=== PATIENT | female | born 1975 | race Caucasian/White ===

== ENCOUNTER → 2018-03-12 13:58 | Outpatient (CLI) | payer BC, SELFPAY ==
[2018-03-13 14:42] LABS: HPV Reflexed? NOT INDICATED
== END ==
PROVIDERS: Referring Provider Obstetrics & Gynecology; Visit Provider Obstetrics & Gynecology
DX: Z12.4 Encounter for screening for malignant neoplasm of cervix (principal)
CPT/HCPCS: 88175; G0145

== ENCOUNTER → 2018-07-25 12:45 | Outpatient (CLI) | payer BC, SELFPAY ==
--- NOTE | 2018-07-25 12:48 | BI_ITS ---
MAMMOGRAPHY - BILATERAL SCREENING REASON FOR EXAM: Female, 43 years old. Routine annual screening examination. PERTINENT HISTORY: Non-contributory. TECHNIQUE: Digital bilateral breast matthew (3D mammographic acquisition) in the CC and MLO projections. 2-D mediolateral oblique (MLO) and craniocaudad (CC) views of both breasts were obtained. CAD: Full Field Digital Mammography with Computer Added Detection was performed. COMPARISON: Comparison is made with prior examination dated May 06, 2017. FINDINGS: Breast Composition: The breasts are heterogeneously dense, which may obscure small masses. There are no dominant masses or suspicious calcifications. No other significant abnormalities are identified. There has been no significant change since the prior study. BI/SCREENING MAMM (CAD), BILAT IMPRESSION: Stable bilateral screening mammogram. Yearly follow-up mammogram recommended. (A) ASSESSMENT CATEGORY: BIRADS Category 1: Negative. A letter regarding these results will be sent to the patient by the facility within 30 days. Approximately 10% of breast cancers are not detected by mammography. A normal mammogram should not delay biopsy of a clinically suspicious abnormality. [id number] Electronically Signed: John Paul Woodruff MD at 14:25 EST , Service support ,
== END ==
PROVIDERS: Family Provider Family Medicine; PCP Family Medicine; Referring Provider Obstetrics & Gynecology; Visit Provider Obstetrics & Gynecology
DX: Z12.31 Encounter for screening mammogram for malignant neoplasm of breast (principal)
CPT/HCPCS: 77063; 77067

== ENCOUNTER → 2018-07-27 12:01 | Outpatient (CLI) | payer BC, SELFPAY ==
[2018-07-27 15:32] LABS: Absolute Neutrophil Count 5.7 X10^3/uL (2.0-7.7); Basophil# 0.06 X10^3/uL; Basophil% 0.6 % (0-1); Eosinophil# 0.34 X10^3/uL; Eosinophils% 3.6 % (0-5); Hematocrit 43.5 % (37-47); Hemoglobin 14.3 g/dl (12.0-15.0); Lymphocyte % 27.5 % (19-41); Mean Corp Hgb Conc 32.9 g/gl (32-36); Mean Corpuscular Hgb 30.4 pg (27.0-32.0); Mean Corpuscular Volume 92.6 fL (81-99); Mean Platelet Vol. 10.5 fl (6.2-12.0); Monocyte% 7.4 % (0-10); Neutrophil # 5.72 X10^3/uL (2.7-7.7); Neutrophil % 60.5 % (47-70); Platelet Count 211 K/mm3 (150-450); RBC Distribution Width CV 12.7 % (11.6-14.6); RBC Distribution Width SD 41.9 fl (35.1-43.9); White Blood Count 9.5 K/mm3 (4.4-11.0)
[2018-07-27 15:35] LABS: POSITIVE COUNT NO; POSITIVE DIFFERENTIAL NO; POSITIVE MORPHOLOGY NO
[2018-07-27 16:10] LABS: Thyroid Stim Hormone (TSH) 0.98 uIU/mL (0.358-3.74)
== END ==
PROVIDERS: Family Provider Family Medicine; PCP Family Medicine; Referring Provider Family Medicine; Visit Provider Family Medicine
DX: R20.0 Anesthesia of skin (principal); R20.2 Paresthesia of skin
CPT/HCPCS: 36415; 84443; 85025

== ENCOUNTER → 2018-10-16 06:40 | Outpatient (CLI) | payer BC, SELFPAY ==
--- NOTE | 2018-10-16 12:10 | NEURO ---
NCS and/or EMG Patient Report Ordering Doctor: Silvina Vicente DATE OF SERVICE: 10/16/18 This is an EMG and nerve conduction study of the right upper extremity performed on this 43-year-old female with paresthesias in the first 3 digits of the right hand for 8 months. She does wear a wrist splint at night which helps. Right upper extremity sensory motor nerve conduction studies performed demonstrating prolongation of the median motor and sensory distal latencies with reduction of the median motor amplitudes but preserved conduction velocity. The median motor F wave is also prolonged. The ulnar motor and sensory, and radial sensory responses are normal in the ulnar f wave response is normal. Right upper extremity needle electromyography is performed. The abductor pollicis brevis muscle did demonstrate large motor units with early recruitment. All other muscles tested demonstrated normal insertional activity with absence of pathologic spontaneous activity. Motor unit potential recruitment pattern and amplitude was otherwise normal. Other muscles tested included the first dorsal interosseous, abductor pollicis brevis, brachial radialis, biceps, triceps and deltoid muscles. Impression: Abnormal electrophysiologic study of the right upper extremity consistent with mild carpal tunnel syndrome at the wrist.
== END ==
PROVIDERS: Family Provider Family Medicine; PCP Family Medicine; Referring Provider Family Medicine; Visit Provider Family Medicine
DX: R20.0 Anesthesia of skin (principal); R20.2 Paresthesia of skin
CPT/HCPCS: 95886; 95910

== ENCOUNTER 2019-01-16 05:30 | Day surgery (SDC) | payer BC, SELFPAY ==
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
[2019-01-16] VITALS (8 sets, daily range): BP systolic 96–118; BP diastolic 59–75; PULSE 62–71; RESP 14–16; TEMP 36.2–37; O2SAT 95–100; BMI 28.4
[2019-01-16 06:05] LABS: Internal QC Validated? YES +Cl - CLEAR BKGD; Pregnancy, Urine Negative Negative
[2019-01-16] MEDS: Cefazolin 2 GM in 0.9% Normal Saline 100 ML IV (07:11)
[2019-01-16] MEDS: Bupivacaine Mpf 0.5% 30 ML VIAL (07:30)
--- NOTE | 2019-01-16 07:37 | OP.PCM_ITS ---
Report of Operation Date of Procedure: 01/16/19 Pre-Operative Diagnosis: Right carpal tunnel syndrome Post-Operative Diagnosis: Right carpal tunnel syndrome Surgery/Procedure Performed:: Right carpal tunnel release Description of Surgical Findings:: Complete release transverse carpal ligament director of vocational guidance: None Type of Anesthesia:: Block,[place] Anesthesiologist: Jarret Toro Special Medications: 2 g Ancef Estimated Blood Loss (mL): 1 mL Fluids Replaced: 500 mL crystalloid Description of Procedure: Brief history operative indications: 43-year-old female who failed conservative measures for right carpal tunnel syndrome. Patient wished to proceed with right open carpal tunnel release. After discussing risks and benefits including but not limited to blood loss, DVTs, PEs, neurovascular damage, infection, hematoma and general risk of anesthesia, the patient demonstrated understanding wish to proceed with right open carpal tunnel release Procedure: On the date of the procedure, the patient's right upper extremity was marked in the preoperative area. Patient was taken back to the operating room, where the tourniquet was placed on the right upper extremity. Patient was given light sedation. All bony prominences are identified well-padded. Anesthesia assumed control C-spine and airway and remained in control throughout the remainder the procedure. [place] block was administered by anesthesia. The right upper extremity was prepped in sterile fashion. Surgeon then scrub. Upon reentering the room, the right upper extremity was prepped in a standard orthopedic fashion. A timeout was called and everyone agreed upon the side, the site, the procedure to be performed, patient identity and antibiotics given. The incision was marked out. Incision was taken at the skin subtenons tissue fat down to fascia. Fascia was then lightly tethered until the median nerve was visible. A [place] was placed proximally and distally, and then scissors were placed proximally and distally to release the transverse carpal ligament. During the release the others were never completely closed. The [place] was then placed proximally and distally once more to verify the transverse carpal ligament had been adequately released. The wound was then copiously irrigated out with normal saline. Wound was then closed using 3-0 nylon suture. 10 cc of 50-50 mixture of 1% lidocaine and 0.5% Sensorcaine without epinephrine injection was given. Xeroform dressing was placed, sterile dressing was placed, compressive dressing was placed. Tourniquet was let down. Volar splint was placed. Patient was awakened by anesthesia and transferred to the PACU for recovery. Postoperative plan: The patient will follow up in 2 weeks for removal splint removal sutures. At that time if they are doing well they will follow-up as needed. - Complications No intraoperative complications - Admit VTE Documentation VTE Present on Admission: No VTE Mechan Device Prophylaxis: SCD's VTE Pharm Prophylaxis ordered?: No Reason prophylaxis not ordered:: Treatment Not Indicated
[2019-01-16] MEDS: Ketorolac 30 MG/ML Syringe IV (08:25)
== END 2019-01-16 08:50 | disposition home or self-care (01) ==
LOC: SDC 05:32 → AC 05:33
PROVIDERS: Anesthesiology; Family Provider Family Medicine; PCP Family Medicine; Referring Provider Specialist; Visit Provider Specialist
PROC: (CPT 64721; principal; 2019-01-16 07:00)
DX: G56.01 Carpal tunnel syndrome, right upper limb (principal)
CPT/HCPCS: 01810; 64721; 81025; J7120

== ENCOUNTER → 2019-08-14 12:08 | Outpatient (CLI) | payer BC, SELFPAY ==
[2019-01-16 06:13] VITALS: BMI 28.4
--- NOTE | 2019-08-14 12:10 | BI_ITS ---
MAMMOGRAPHY - BILATERAL SCREENING REASON FOR EXAM: Female, 44 years old. Routine annual screening examination. PERTINENT HISTORY: Non-contributory. TECHNIQUE: Digital bilateral breast teresa (3D mammographic acquisition) in the CC and MLO projections. 2-D mediolateral oblique (MLO) and craniocaudad (CC) views of both breasts were obtained. CAD: Full Field Digital Mammography with Computer Added Detection was performed. COMPARISON: Comparison is made with prior examination if every and May 06, 2017. FINDINGS: Breast Composition: The breasts are heterogeneously dense, which may obscure small masses. There are no dominant masses or suspicious calcifications. No other significant abnormalities are identified. There has been no significant change since the prior study. BI/SCREEN MAMM (CAD) W/TERESA BILAT IMPRESSION: Stable bilateral screening mammogram. Yearly follow-up mammogram recommended. (A) ASSESSMENT CATEGORY: BIRADS Category 1: Negative. A letter regarding these results will be sent to the patient by the facility within 30 days. Approximately 10% of breast cancers are not detected by mammography. A normal mammogram should not delay biopsy of a clinically suspicious abnormality. [id number] Electronically Signed: John Paul Woodruff, at 13:16 EDT , Service support ,
== END ==
PROVIDERS: PCP Family Medicine; Referring Provider Obstetrics & Gynecology; Visit Provider Obstetrics & Gynecology
DX: Z12.31 Encounter for screening mammogram for malignant neoplasm of breast (principal)
CPT/HCPCS: 77063; 77067

== ENCOUNTER → 2020-04-02 14:10 | Outpatient (CLI) | payer BC, SELFPAY ==
[2019-01-16 06:13] VITALS: BMI 28.4
[2020-04-08 13:59] LABS: HPV Reflexed? NOT INDICATED
== END ==
PROVIDERS: PCP Family Medicine; Visit Provider Obstetrics & Gynecology
DX: Z12.4 Encounter for screening for malignant neoplasm of cervix (principal)
CPT/HCPCS: 88175; G0145

== ENCOUNTER → 2021-10-26 | Outpatient (CLI) | payer BC, SELFPAY ==
[2021-10-26 13:53] LABS: Estradiol 182.5 pg/mL; Follicle Stimulating Hormone 3.8 mIU/mL; Luteinizing Hormone 6.3 mIU/mL; Prolactin 3.9 ng/mL; Thyroid Stim Hormone (TSH) 1.53 uIU/mL (0.358-3.74)
[2021-10-30 11:34] LABS: HPV APTIMA, High Risk Negative (Negative)
== END | disposition home or self-care (01) ==
LOC: WOBLAB 11:18
PROVIDERS: PCP Family Medicine; Visit Provider Student in an Organized Health Care Education/Training Program
DX: Z12.4 Encounter for screening for malignant neoplasm of cervix (principal); N92.0 Excessive and frequent menstruation with regular cycle; N93.9 Abnormal uterine and vaginal bleeding, unspecified
CPT/HCPCS: 36415; 82670; 83001; 83002; 84146; 84439; 84443; 84481; 87624; 88175; G0145

== ENCOUNTER → 2021-11-02 | Outpatient (CLI) | payer BC, SELFPAY ==
--- NOTE | 2021-11-02 16:27 | BI_ITS ---
MAMMOGRAPHY - BILATERAL SCREENING REASON FOR EXAM: Female, 46 years old. Routine annual screening examination. PERTINENT HISTORY: Non-contributory. TECHNIQUE: Digital bilateral breast teresa (3D mammographic acquisition) in the CC and MLO projections. 2-D mediolateral oblique (MLO) and craniocaudad (CC) views of both breasts were obtained. CAD: Full Field Digital Mammography with Computer Added Detection was performed. COMPARISON: Comparison is made with prior study dated 08/14/2019 and 07/25/2018. FINDINGS: Breast Composition: The breasts are heterogeneously dense, which may obscure small masses. There are no dominant masses or suspicious calcifications. No other significant abnormalities are identified. There has been no significant change since the prior study. BI/SCRN MAMM (CAD)W/TERESA BILAT IMPRESSION: Stable bilateral screening mammogram. Yearly follow-up mammogram recommended. (A) ASSESSMENT CATEGORY: BIRADS Category 1: Negative. A letter regarding these results will be sent to the patient by the facility within 30 days. Approximately 10% of breast cancers are not detected by mammography. A normal mammogram should not delay biopsy of a clinically suspicious abnormality. [id number] Electronically Signed: John Paul Woodruff MD at 8:48 EDT ,
== END | disposition home or self-care (01) ==
LOC: OPBI 11-03 06:57
PROVIDERS: PCP Family Medicine; Referring Provider Student in an Organized Health Care Education/Training Program; Visit Provider Student in an Organized Health Care Education/Training Program
DX: Z12.31 Encounter for screening mammogram for malignant neoplasm of breast (principal)
CPT/HCPCS: 77063; 77067

== ENCOUNTER → 2022-11-22 | Outpatient (CLI) | payer BC, SELFPAY ==
--- NOTE | 2022-11-22 12:15 | BI_ITS ---
MAMMOGRAPHY - BILATERAL SCREENING REASON FOR EXAM: Female, 47 years old. Routine annual screening examination. PERTINENT HISTORY: Non-contributory. TECHNIQUE: Digital bilateral breast teresa (3D mammographic acquisition) in the CC and MLO projections. 2-D mediolateral oblique (MLO) and craniocaudad (CC) views of both breasts were obtained. CAD: Full Field Digital Mammography with Computer Added Detection was performed. COMPARISON: Mammogram from 11/02/2021, 08/14/2019. FINDINGS: Breast Composition: The breasts are heterogeneously dense, which may obscure small masses. There is an asymmetry in the right retroareolar slightly inferior breast, anterior depth, approximately 0.5 cm posterior to the nipple and seen only on 3-D MLO views which appears slightly more conspicuous than prior studies. Further assessment with spot compression views and ultrasound if needed is recommended. No other significant abnormalities are identified. BI/SCRN MAMM (CAD)W/TERESA BILAT IMPRESSION: Further imaging evaluation recommended, as described above. (E) Recall Side: Right Breast ASSESSMENT CATEGORY: BIRADS Category 0: Incomplete. Need additional imaging evaluation. A letter regarding these results will be sent to the patient by the facility within 30 days. Approximately 10% of breast cancers are not detected by mammography. A normal mammogram should not delay biopsy of a clinically suspicious abnormality. Electronically Signed: Nicolás Delatorre DO at 16:53 EDT ,
== END | disposition home or self-care (01) ==
LOC: OPBI 12:13
PROVIDERS: PCP Family Medicine; Referring Provider Student in an Organized Health Care Education/Training Program; Visit Provider Student in an Organized Health Care Education/Training Program
DX: Z12.31 Encounter for screening mammogram for malignant neoplasm of breast (principal)
CPT/HCPCS: 77063; 77067

== ENCOUNTER → 2022-11-30 | Outpatient (CLI) | payer BC, SELFPAY ==
--- NOTE | 2022-11-30 08:54 | US_ITS ---
STUDY: ULTRASOUND BREAST - RIGHT REASON FOR EXAM: Female, 47 years old. Abnormal screening mammogram. TECHNIQUE: Axial and longitudinal images of the RIGHT breast were performed with a high resolution ultrasound transducer. # OF IMAGES: 20 COMPARISON: Comparison is made with prior mammogram dated November 22, 2022. FINDINGS: RIGHT Breast: The retroareolar region of the right breast was examined with ultrasound. There is evidence of dilated subareolar ducts. US/Breast Limited Unilateral IMPRESSION: Dilated retroareolar ducts of the right breast. ASSESSMENT CATEGORY: BIRADS Category 2: Benign. A letter regarding these results will be sent to the patient by the facility within 30 days. Electronically Signed: John Paul Woodruff MD at 11:05 EDT ,
--- NOTE | 2022-11-30 08:54 | BI_ITS ---
MAMMOGRAPHY - UNILATERAL DIAGNOSTIC: RIGHT BREAST REASON FOR EXAM: Female, 47 years old. Abnormal screening mammogram. PERTINENT HISTORY: Asymmetrical density in the retroareolar region of the right breast. TECHNIQUE: Compression spot views of the right breast were obtained. . CAD: Full Field Digital Mammography with Computer Added Detection was performed. COMPARISON: Comparison is made with prior study November 22, 2022. FINDINGS: Breast Composition: The breasts are heterogeneously dense, which may obscure small masses. There are no dominant masses or suspicious calcifications. No other significant abnormalities are identified. BI/DIAG MAMM W/CAD, UNILAT IMPRESSION: Negative unilateral diagnostic mammogram. Correlation with targeted ultrasound assessment is recommended. ASSESSMENT CATEGORY: BIRADS Category 0: Incomplete. Need additional imaging evaluation. A letter regarding these results will be sent to the patient by the facility within 30 days. Approximately 10% of breast cancers are not detected by mammography. A normal mammogram should not delay biopsy of a clinically suspicious abnormality. Electronically Signed: John Paul Woodruff MD at 11:42 EDT ,
== END | disposition home or self-care (01) ==
PROVIDERS: PCP Family Medicine; Referring Provider Student in an Organized Health Care Education/Training Program; Visit Provider Student in an Organized Health Care Education/Training Program
DX: R92.8 Other abnormal and inconclusive findings on diagnostic imaging of breast (principal)
CPT/HCPCS: 76642; 77065

== ENCOUNTER → 2022-12-14 | Outpatient (CLI) | payer BC, SELFPAY ==
[2022-12-14 10:16] LABS: Erythrocyte Sedimentation Rate 14 mm/hr (0-30)
[2022-12-14 10:27] LABS: Vitamin B12 213 pg/mL (211-911); Vitamin D,25 Hydroxy 18.3 ng/mL
[2022-12-14 10:48] LABS: AST(SGOT) 48 U/L (15-37); Alanine Aminotransfer ALT/SGPT 96 U/L (13-56); Albumin, Serum 3.4 g/dL (3.2-5.0); Alkaline Phosphatase 72 U/L (45-117); Anion Gap 5 (5-15); BUN 14 mg/dL (7-18); BUN/Creat Ratio 19.9 RATIO (10-20); CRP < 2.90 mg/L (0.0-3.0); Calcium,Total 8.8 mg/dL (8.5-10.1); Chloride 111 mmol/L (98-107); Cholesterol 207 mg/dL (200); EST Glomerular Filtration Rate 95 mL/min (>60); Est Glom Filt Rate - Afr Amer 115 mL/min (>60); Globulin 3.5 g/dL (2.2-4.2); Glucose 79 mg/dL (74-106); High Density Lipoprotein 44 mg/dL; Potassium 4.2 mmol/L (3.5-5.1); Protein, Total 6.9 g/dL (6.4-8.2); Sodium Level 140 mmol/L (136-145); Thyroid Stim Hormone (TSH) 1.44 uIU/mL (0.358-3.74); Triglycerides 204 mg/dL; Very Low Density Lipoprotein 41 mg/dL (5-40)
[2022-12-14 10:57] LABS: Absolute Lymphocyte Count 2.78 X10^3/uL (0.83-4.51); Absolute Neutrophil Count 4.2 X10^3/uL (2.0-7.7); Basophil# 0.05 X10^3/uL; Basophil% 0.6 % (0-1); Eosinophil# 0.37 X10^3/uL; Eosinophils% 4.6 % (0-5); Hematocrit 44.1 % (37-47); Hemoglobin 14.5 g/dL (12.0-15.0); Lymphocyte # 2.78 X10^3/ul (0.83-4.51); Lymphocyte % 34.3 % (19-41); Mean Corp Hgb Conc 32.9 g/dL (32-36); Mean Corpuscular Hgb 30.9 pg (27.0-32.0); Mean Platelet Vol. 10.5 fl (6.2-12.0); Monocyte# 0.62 X10^3/uL; Monocyte% 7.7 % (0-10); NRBC Flagged by Analyzer 0 % (0-5); Neutrophil # 4.22 X10^3/uL (2.7-7.7); Neutrophil % 52.1 % (47-70); Platelet Count 213 K/mm3 (150-450); RBC Distribution Width CV 12.7 % (11.6-14.6); RBC Distribution Width SD 43.4 fl (35.1-43.9); Red Blood Count 4.69 M/mm3 (4.2-5.4); White Blood Count 8.1 K/mm3 (4.4-11.0)
[2022-12-15 12:09] LABS: ANTINUCLEAR ANTIBODIES DIRECT Negative (Negative)
== END | disposition home or self-care (01) ==
PROVIDERS: PCP Family Medicine; Referring Provider Family Medicine; Visit Provider Family Medicine
DX: M79.10 Myalgia, unspecified site (principal); Z13.220 Encounter for screening for lipoid disorders; R53.83 Other fatigue
CPT/HCPCS: 36415; 80053; 80061; 82306; 82607; 84443; 85025; 85652; 86038; 86140; 86431

== ENCOUNTER 2023-04-03 07:05 | Day surgery (SDC) | payer BC, SELFPAY ==
[2023-04-03] VITALS (7 sets, daily range): BP systolic 102–154; BP diastolic 63–139; PULSE 69–85; RESP 16; TEMP 36.7–37.1; O2SAT 94–99; BMI 28.7
--- NOTE | 2023-04-03 07:15 | HP.PCM_ITS ---
[facility] - General General Date of Service: 04/03/23 HPI Narrative MOHINI REYNOLDS, is a 47 F who presents for screening colonoscopy. Patient never had previous colonoscopy. Patient paternal grandfather had colon cancer at age 56. Patient denies any chronic abdominal pain/nausea/vomiti ng/reflux. Patient's bowel movements every 1-2 days denies any blood. PFSH Medical History Arthritis Family hx of colon cancer History of deviated nasal septum Rheumatoid arthritis Smoker Home Medications cholecalciferol (vitamin D3) 50 mcg (2,000 unit) capsule 50 mcg PO DAILY 02/13/23 [History Last Taken Unknown] magnesium citrate,mag oxide 250 mg capsule 250 mg PO DAILY 02/13/23 [History Last Taken Unknown] mecobalamin (vitamin B12) 1,000 mcg chewable tablet 1,000 mcg PO DAILY 02/13/23 [History Last Taken Unknown] turmeric root extract 500 mg capsule 500 mg PO DAILY 02/13/23 [History Last Taken Unknown] Allergy/AdvReac Type Severity Reaction Status Date / Time No Known Allergies Allergy Verified 03/27/23 09:32 Family History (Updated 02/13/23 @ 15:34 by Anny Meeks) Grandfather Colon cancer, Onset Age: 56 Colon cancer started at young age per patient Heart disease Grandfather Throat cancer Lung cancer Bone cancer Grandmother Leukemia Skin cancer Surgical History (Updated 03/27/23 @ 09:38 by Kusum Rashid) History of carpal tunnel surgery of right wrist Social History (Updated 02/13/23 @ 15:35 by Anny Meeks) household members: spouse and children current occupational status: employed Smoking Status: Current every day smoker tobacco type: cigarettes Past Medical/Surgical History Planned Operation Planned Operative Procedure/s: COLONOSCOPY-OA S.O.S: No Previous Hospitalizations/Surgeries HX Hospitalizations: No HX of Surgeries: DEVIATED SEPTUM Any Problems With Anesthesia: No You/Your Family Experience Fever (Hyperthermia) With Anes: No Cholinesterase deficiency: No Cardiovascular Hx Chest Pain within Last 2 months: No Hx of Irregular Heartbeat and/or Afib: No Hx Heart Attack: No Hx Congestive Heart Failure: No Hx Rheumatic Fever: No Hx Hypertension: No Hx Internal Defibrillator: No Hx Pacemaker: No Hx Cardiac Catheterization: No Hx Cardiac Surgery/Stents/Etc.: No Hx Stress Test: No Hx Pain in Legs when Walking/Leg Cramps: No Respiratory Chronic Cough: No HX of Shortness of Breath: No Hoarseness: No Hx Chronic Obstructive Pulmonary Disease (COPD): No Hx Asthma: No Hx Emphysema: No Hx Sleep Apnea: No Hx Respiratory Tract Infection/Cold (presently): No Do You Snore Loudly (louder than talking or can be heard): No Do You Often Feel Tired/ Fatigued/ Sleepy Dring Daytime?: No Has Anyone Observed You Stop Breathing During Sleep?: No Result (for STOP score): Negative Hx Smoking: Yes (1PPD FOR 20 YRS) Smoking Status: Current every day smoker Gastrointestinal Hx Gastroesophageal Reflux: No Hx Gastrointestinal Disorders: No Hx Gastrointestinal Bleed: No Hx Ulcer: No Hx Hiatal Hernia: No Difficulty Chewing/Swallowing: No Special diet followed at home: No Hx Unplanned Weight Loss of 20#: No HX Unplanned Weight Gain of 20#: No Neurological Hx Seizures: No HX Syncope/Blackout Spells/Unconsciousness: No Hx Transient Ischemic Attacks (TIA): No Hx Multiple Sclerosis: No Hx Parkinson's Disease: No Hx Head/Neck Injury: No Hx Headaches: No Hx Back Injury/Pain: No Recent Onset of Speech Difficulty: No Restless Legs: No Does patient have nerve stimulator: No Blood Disorder Hx Leukemia: No Bleeding Tendencies: No Hx Deep Vein Thrombosis: No Hx High Cholesterol: No Blood Transmitted Disease: No Hx Hepatitis: No Hx Cirrhosis: No Hx Anemia: No Hx Blood Disorders: No Reproduction : No Is Patient Lactating: No Hx Hysterectomy: No Hx Tubal Ligation: No Are You Post Menopause: No Genitourinary Hx Renal Disease: No Musculoskeletal Hx Arthritis: No Hx Rheumatoid Arthritis: No Hx Gout: No Recent Onset of an Orthopedic Problem: No Endocrine Hx Diabetes: No Thyroid Disease: No Hx Steroid Therapy: No Psycho/Social Hx Substance Use: No Hx Alcohol Use: Yes (SOCIAL) Hx Anxiety: No Hx Depression: No Mental Illness: No Hx Dementia: No Miscellaneous Hx Cancer: No Recent Exposure to Contagious Disease: No Hx of C-Diff: No Any Loose Teeth: No Allergies No Known Allergies Allergy (Verified 03/27/23 09:32) Discharge Is Pt Admitted From a [facility], or a Senior Care: No After D/C, Where Do you Plan to Go: Return Home Physical Exam Const alert, oriented x3 and no apparent distress HEENT normocephalic and head/scalp atraumatic Resp normal respiratory effort Cardio regular rate GI soft to palpation and non-tender; Negative for non-distended Palpation: Negative for guarding Extremity no clubbing, cyanosis or edema Skin no rashes or lesions noted Neuro CN's II-XII intact bilaterally Psych mental status grossly normal Assessment & Plan Assessment/Plan (1) Encounter for screening for malignant neoplasm of colon: Surgery Risks - Colonoscopy I discussed with the patient the risks of the procedure: Yes Risks Include but are not Limited To: Risks include but are not limited to: Bleeding, perforation requiring further surgery, inability to complete colonoscopy requiring barium enema.
[2023-04-03] MEDS: Lactated Ringers 1,000 ML 15 ML IV (07:48)
[2023-04-03 07:50] LABS: Internal QC Validated? YES +Cl - CLEAR BKGD; Pregnancy, Urine Negative Negative; Record Kit Lot#,Urine Preg HCG0000667200
--- NOTE | 2023-04-03 08:15 | COLBX_PTH ---
PATIENT: MOHINI REYNOLDS LOC: EN U#:[id number] AGE/SX: 47/F ROOM: RE04/03/[address]: Dr. Mayte Mcclellan MD : 1975 BED: DIS: 04/03/2023 SPEC #: [id number] RECD: 04/03/23 11:06 STATUS: JOHN TREVOR #: [id number] AARTI: 04/03/23 08:[address]: Mayte Mcclellan DEPT: SURGICAL PATHOLOGY RECD BY: Elodia Macedo ENTERED: 04/03/23 11:59 SP TYPE: COLON BX OTHR DR: Dr. Jeff Prater MD Tissues: Cecum, NOS Procedures: Surgery Specimen Level IV HEADER OPERATION: Colonoscopy - open access with polyp biopsy PRE-OP DIAGNOSIS: Screening TISSUE SUBMITTED: Cecum biopsy MICROSCOPIC DIAGNOSIS Cecum, biopsy: Fragments of hyperplastic polyp. AM:lauro 04/04/2023 MICROSCOPIC DESCRIPTION Slides are reviewed. GROSS DESCRIPTION Received in fixative is one container labeled with the patient's name and designated cecum biopsy. The specimen consists of multiple irregular fragments of light mao soft tissue that in aggregate measure 1.5 x 0.7 x 0.1 cm. The specimen is totally submitted in one cassette. / SJ:lauro 04/03/2023 TC:5 CPT: 92200
--- NOTE | 2023-04-03 08:41 | OP.COLON_ITS ---
Patient Name: Silvina Moreau Procedure Date: 04/03/2023 8:08 AM Date of : 1975 Age: 47 Procedure: Colonoscopy Indications: Screening for colorectal malignant neoplasm Providers: Mayte Mcclellan MD Medicines: Monitored Anesthesia Care Patient Profile: This is a 47 year old female. Last Colonoscopy: none. The patient's first colonoscopy is today. Complications: No immediate complications. Procedure: Pre-Anesthesia Assessment: - Prior to the procedure, a History and Physical was performed, and patient medications and allergies were reviewed. The patient's tolerance of previous anesthesia was also reviewed. The risks and benefits of the procedure and the sedation options and risks were discussed with the patient. All questions were answered, and informed consent was obtained. Prior Anticoagulants: The patient has taken no anticoagulant or antiplatelet agents. ASA Grade Assessment: Per anesthesia. After reviewing the risks and benefits, the patient was deemed in satisfactory condition to undergo the procedure. After I obtained informed consent, the scope was passed under direct vision. Throughout the procedure, the patient's blood pressure, pulse, and oxygen saturations were monitored continuously. The pediatric colonoscope was introduced through the anus and advanced to the cecum, identified by the appendiceal orifice, ileocecal valve and palpation. The colonoscopy was performed without difficulty. The patient tolerated the procedure well. The quality of the bowel preparation was good. Scope In: 8:15:36 AM Scope Withdrawal Time 0 hours 14 minutes 5 seconds Scope Out: 8:35:39 AM Total Procedure Duration Time 0 hours 20 minutes 3 seconds Findings: Hemorrhoids were found on perianal exam. Non-bleeding internal hemorrhoids were found. The hemorrhoids were Grade I (internal hemorrhoids that do not prolapse). A 7 mm polyp was found in the cecum. The polyp was sessile. The polyp was removed with a cold biopsy forceps. Resection and retrieval were complete. The exam was otherwise without abnormality. Impression: - Hemorrhoids found on perianal exam. - Non-bleeding internal hemorrhoids. - One 7 mm polyp in the cecum, removed with a cold biopsy forceps. Resected and retrieved. - The examination was otherwise normal. Recommendation: - Discharge patient to home. - Resume previous diet. - Continue present medications. - Await pathology results. - Repeat colonoscopy in 5 years for surveillance based on pathology results. Procedure Code(s): --- Professional --- 79999, PT, Colonoscopy, flexible; with biopsy, single or multiple Diagnosis Code(s): --- Professional --- Z12.11, Encounter for screening for malignant neoplasm of colon K64.0, First degree hemorrhoids D12.0, Benign neoplasm of cecum CPT copyright 2021 [employer]. All rights reserved. The codes documented in this report are preliminary and upon fashion journalist review may be revised to meet current compliance requirements. MD Mayte Syed MD 04/03/2023 8:41:04 AM This report has been signed electronically. Number of Addenda: 0 Note Initiated On: 04/03/2023 8:08 AM
--- NOTE | 2023-04-03 08:41 | OP.CCLET_ITS ---
04/03/2023 Angel Prater [address] [place] [address] Re : Colonoscopy procedure for Silvina CraneMoreau Dear Dr. Prater This procedure was performed on Monday, April 03, 2023. My impressions and recommendations are as follows: Impressions : - Hemorrhoids found on perianal exam. - Non-bleeding internal hemorrhoids. - One 7 mm polyp in the cecum, removed with a cold biopsy forceps. Resected and retrieved. - The examination was otherwise normal. Recommendations : - Discharge patient to home. - Resume previous diet. - Continue present medications. - Await pathology results. - Repeat colonoscopy in 5 years for surveillance based on pathology results. My findings are described in the full procedure note, which is enclosed. If I can be of further assistance, please feel free to contact me at Doctor phone number(s): , Work: . Sincerely, MD Mayte Syed MD 04/03/2023 8:41:04 AM This report has been signed electronically.
== END 2023-04-03 09:36 | disposition home or self-care (01) ==
LOC: EN 07:05 → AC 07:12
PROVIDERS: Anesthesiology; PCP Family Medicine; Referring Provider Surgery; Visit Provider Surgery
PROC: 0DJD8ZZ Inspection of Lower Intestinal Tract, Via Natural or Artificial Opening Endoscopic (ICD-10-PCS; CPT 45378; principal; 2023-04-03 08:10)
DX: Z12.11 Encounter for screening for malignant neoplasm of colon (principal); Z80.0 Family history of malignant neoplasm of digestive organs; K64.0 First degree hemorrhoids; F17.210 Nicotine dependence, cigarettes, uncomplicated; D12.0 Benign neoplasm of cecum
CPT/HCPCS: 45380; 81025; 88305; J7120; A4216; J2405

== ENCOUNTER → 2023-04-21 | Outpatient (CLI) | payer BC, SELFPAY ==
[2023-04-21 15:42] LABS: Red Blood Cells-Urine 0 SEEN /hpf (0-5)
[2023-04-21 19:08] LABS: Color, Urine Yellow (Yellow); Glucose, Dipstick Normal (Normal); Ketone-Dipstick 5 mg/dl (Negative); Leukocyte Esterase-Dipstick 25 /ul (Negative); Nitrite-Dipstick Negative (Negative); Occult Blood-Urine 10 /ul (Negative); Protein-Dipstick 15 mg/dl (Negative); Urine Bilirubin Dipstick Negative (Negative); Urine Clarity Sl. Cloudy (Clear); Urine Urobilinogen 1 mg/dl (Normal)
[2023-04-21 19:34] LABS: Calcium Oxalate Crystals Ur 2+ /hpf (<or=2+); Squamous Epithelial Cells - UA 0-5 SEEN /hpf (5-10); White Blood Cells 0-5 SEEN /hpf (0-5)
[2023-04-21 19:35] LABS: Bacteria RARE /hpf (None Seen); Mucous, Urine RARE /hpf (<or=2+)
== END | disposition home or self-care (01) ==
LOC: MTLAB 15:37
PROVIDERS: PCP Family Medicine; Referring Provider Internal Medicine Rheumatology; Visit Provider Internal Medicine Rheumatology
DX: M79.18 Myalgia, other site (principal)
CPT/HCPCS: 81001; 87086

== ENCOUNTER → 2023-12-01 | Outpatient (CLI) | payer BC, SELFPAY ==
--- NOTE | 2023-12-01 08:21 | BI_ITS ---
MAMMOGRAPHY - BILATERAL SCREENING 3-D TOMOSYNTHESIS REASON FOR EXAM: Female, 48 years old. SCREENING PERTINENT HISTORY: No significant family history. TECHNIQUE: 2-D mammograms and 3-D Tomosynthesis of the breast (s) were performed. CAD was performed. COMPARISON: 11/22/2022 FINDINGS: The breast composition is heterogeneously dense that can obscure small breast masses. Scattered benign calcifications are seen. No dense spiculated masses or suspicious microcalcifications are identified. No architectural distortion is identified. There is no skin thickening or retraction. There has been no significant change since the prior study. BI/SCRN MAMM (CAD)W/TERESA BILAT IMPRESSION: No mammographic signs of malignancy. Routine yearly mammograms recommended. ASSESSMENT CATEGORY: BIRADS Category 1: Negative. A letter regarding these results will be sent to the patient by the facility within 30 days. FOLLOW UP RECOMMENDATION: Yearly follow up mammogram recommended. (A) Approximately 10% of breast cancers are not detected by mammography. A normal mammogram should not delay biopsy of a clinically suspicious abnormality. Electronically Signed: Alexandro Mathis MD at 13:28 EDT ,
== END | disposition home or self-care (01) ==
LOC: OPBI 08:20
PROVIDERS: PCP Family Medicine; Referring Provider Obstetrics & Gynecology; Visit Provider Obstetrics & Gynecology
DX: Z12.31 Encounter for screening mammogram for malignant neoplasm of breast (principal)
CPT/HCPCS: 77063; 77067

== ENCOUNTER → 2025-01-30 | Outpatient (CLI) | payer BC, SELFPAY ==
--- NOTE | 2025-01-30 12:24 | BI_ITS ---
EXAM: SCRN MAMM (CAD)W/TERESA BILAT DATE: 01/30/2025 CLINICAL HISTORY: F, Age 49 y/o , SCREENING No family history. TECHNIQUE: SCRN MAMM (CAD)W/TERESA BILAT COMPARISON: Prior exam(s) dated December 01, 2023.. FINDINGS: TISSUE DENSITY: The breasts are heterogeneously dense, which may obscure small masses. Bilateral Breast Mammographic Findings: No significant masses, calcifications or other abnormalities are identified. Stable fat containing bilateral axillary lymph nodes. No suspicious masses, areas of developing architectural distortion, or suspicious calcifications. There has been no significant interval change. BI/SCRN MAMM (CAD)W/TERESA BILAT IMPRESSION: Stable bilateral screening mammogram. OVERALL FINAL ASSESSMENT BI-RADS 2: BENIGN RECOMMENDATION: Routine annual follow-up in 1 Year A letter with findings and recommendations will be mailed to the patient. Reading Location: [id number]
--- OUTSIDE RECORDS SUMMARY | 2025-01-30 18:31 | XMS RPT_ITS | CCD ---
Author Organization [facility] Care Team Providers [employer] Sales Representative Name Role Phone Dr. Angel Prater Primary Care Provider [phone] Anny Meeks Attending Provider Unavailable Dr. Mayte Mcclellan Attending Provider Dr. Mayte Mcclellan Referring Provider [phone] Dr. Mayte Mcclellan Other Provider [phone] Unavailable Primary Care Provider UnavailANN Carver Attending Unavailable JED PRATER Primary Care UnavailJed Larios MD Primary Care Provider Jed Prater Primary Care Unavailable Jed Prater Referring Unavailable Veto Page Attending Unavailable Ann Giang Attending Unavailable Ann Giang Referring Unavailable Jed Prater Primary Care Unavailable Medications Current Medications Medication Drug Class(es) Dates Sig (Normalized) Sig (Original) cholecalciferol 0.05 mg oral capsule (1 source) Vitamin D Start: 02-13-2023 take 50 ug by mouth once daily Cholecalciferol (Vitamin D3) Active 50 MCG PO DAILY February 13, 2023 12:00am Magnesium Citrate,Mag Oxide (1 source) Start: 02-13-2023 take 250 mg by mouth once daily Magnesium Citrate,Mag Oxide Active 250 MG PO DAILY February 13, 2023 12:00am mecobalamin 1 mg chewable tablet (1 source) Start: 02-13-2023 take 1000 ug by mouth once daily Mecobalamin (Vitamin B12) Active 1000 MCG PO DAILY February 13, 2023 12:00am norethindrone 0.35 mg oral tablet (1 source) Start: 01-27-2025 take 1 tablet by mouth once daily Norethindrone, Contraceptive, 0.35 mg tablet Indications: Abnormal uterine bleeding Take 1 tablet by mouth once daily. 90 tablet 3 01/27/2025 Active Start: 01-27-2025 take 1 tablet by srinivasa th once daily Norethindrone, Contraceptive, 0.35 mg tablet Indications: Abnormal uterine bleeding Take 1 tablet by mouth once daily. 90 tablet 3 01/27/2025 Active tranexamic acid 650 mg oral tablet (2 sources) Antifibrinolytic Agent Start: 12-08-2023 End: 01-27-2025 take 2 tablets by mouth every eight hours tranexamic acid (LYSTEDA) 650 mg tablet Take 2 tablets by mouth every 8 hours for 5 days. 30 tablet 11 12/08/2023 01/27/2025 Discontinued Turmeric Root Extract (1 source) Start: 02-13-2023 take 500 mg by mouth once daily Turmeric Root Extract Active 500 MG PO DAILY February 13, 2023 12:00am Problems Active Problems Problem Classification Problem Date Documented Date Episodic/Chronic Endometriosis (5 sources) Uterine adenomyosis; Translations: [Adenomyosis of the uterus] Onset: 11-30-2023 11-30-2023 Chronic Immunizations and screening for infectious disease (1 source) Encounter for screening for human papillomavirus (HPV); Translations: [Encounter for screening for human papillomavirus (HPV)] Onset: 01-27-2025 Episodic Menstrual disorders (3 sources) Menorrhagia; Translations: [Excessive and frequent menstruation with regular cycle] 11-14-2023 Chronic Other female genital disorders (1 source) Abnormal uterine and vaginal bleeding, unspecified; Translations: [Abnormal uterine bleeding] Onset: 01-27-2025 Chronic Other female genital disorders (1 source) Abnormal uterine bleeding; Translations: [Abnormal uterine and vaginal bleeding, unspecified] 01-27-2025 Chronic Other screening for suspected conditions (not mental disorders or infectious disease) (9 sources) Patient encounter status; Translations: [Encounter for screening for malignant neoplasm of colon] Onset: 01-27-2025 02-13-2023 Episodic Past or Other Problems Problem Classification Problem Date Documented Da te Episodic/Chronic Benign neoplasm of uterus (5 sources) Intramural leiomyoma of uterus; Translations: [Intramural leiomyoma of uterus] Onset: 11-30-2023 11-30-2023 Episodic Chronic obstructive pulmonary disease and bronchiectasis (1 source) Bronchitis, not specified as acute or chronic; Translations: [Bronchitis, not specified as acute or chronic] Onset: 04-13-2024 Episodic Unclassified (1 source) Patient encounter status 01-27-2025 Results Test Name Value Interpretation Reference Range Facility CNOVon 01-27-2025 CNOV Office Visit (OBGYWM ) GAILSILVINA Lau ([id number]) 1975 F Date Time Provider Department 01/27/25 7:15 AM ANN GIANG During your visit today, we recorded the following information about you: Blood pressure Weight Height Last Period 112 79.8 kg 1.689 m 01/04/25 Ann Giang, MOUNA.BONE DRIER OPERATOR 01/27/2025 7:43 AM Signed Silvina is a 49 year old who presents for an annual gynecologic exam without complaints. Still get period: Yes LMP: 01/04/2025 Menses: cycles every 28 to 30 days days and 5 days of flow Menstrual flow: heavy Bleeding amount bothersome: Yes, soaking pad/tampon every 3-4 hours Bleeding between periods: No Period symptoms: None Sexually active: Yes Contraception: vasectomy Contraception frequency: always HPV vaccine: No HPV:not sure Last pap smear: 2002 History of abnormal pap: Yes Colposcopy: Yes: early 20s Leep: Yes: early 20s Cone biopsy: No. Bothersome pelvic pain: Yes Last mammogram: 2023 [facility] OB History Gravida2 Para2 Term0 Preterm0 AB0 Living2 SAB0 IAB0 Ectopic0 Multiple0 Live Births0 Stave Bolt Equalizer History LMP: 11/24/2023, Having periods Age at Menarche: Age at First : Age at Menopause: Stave Bolt Equalizer History Comments: Sexual Activity: Yes; Male Contraception: No contraception data on record PAST MEDICAL HISTORY Diagnosis Date Rheumatoid arthritis (HCC) currently getting screened for Rheumatoid PAST SURGICAL HISTORY Procedure Laterality Date REPAIR OF NASAL SEPTUM REVISE MEDIAN N/CARPAL TUNNEL SURG FAMILY HISTORY Problem Relation Age of Onset No Known Problems Mother No Known Problems Father No Known Problems Sister Colon Cancer Maternal Grandmother Cancer Maternal Grandfather Leukemia Paternal Grandmother Colon Cancer Paternal Grandfather SOCIAL HISTORY Social History Tobacco Use Smoking status: Every Day Smokeless tobacco: Never Tobacco comments: .25pkg day Vaping Use Vaping status: Never Used Substance Use Topics Alcohol use: Yes Comment: rarely Drug use: No REVIEW OF SYSTEMS Abdomen: No abdominal pain, nausea, vomiting, diarrhea, or constipation. No bloating, early satiety, indigestion, or increased flatulence. Bladder: No dysuria, gross hematuria, urinary frequency, urinary urgency, or incontinence. Breast: No breast lumps, nipple d/c, overlying skin changes, redness or skin retraction. Allergies and current medication updated:Yes SENSITIVE EXAM: The sensitive examination was discussed with the Patient or Patient's Authorized Executive Recruiter. As applicable, any other physician, advance practice provider, medical student, or other health professional student that will be observing or involved in the sensitive examination for educational or training purposes was discussed with the Patient or Authorized Executive Recruiter. The Patient or Authorized Executive Recruiter has agreed to proceed with the sensitive examination. (Sensitive examination includes inspection and/or palpation of the breasts, pelvis, prostate and anorectal regions). EXAM: BP 112/68 Ht 5' 6.5 (1.69m) Wt 176 lb (79.8kg) LMP 01/04/2025 BMI 27.98 kg/(m2). GENERAL: pleasant, female in no apparent distress HEENT: Normocephalic, atraumatic, mucus membranes moist, and no lesions NECK: Supple, full range of motion, no adenopathy, and thyroid normal DERMATOLOGY: Normal, without lesions, non-icteric, and non-hirsute BREAST: soft, non-tender, symmetric, no dominant mass, normal nipple-areolar complex, no lymphadenopathy, and no nipple discharge CHEST: Normal inspiratory effort ABDOMEN: soft, non-tender, and no masses PELVIC: external genitalia normal, normal Bartholin's glands, urethra, [place]'s glands, no vulvar lesions, no cervical lesions, + nabothian cysts noted good vaginal support, physiologic discharge present, normal appearing perineal body and perianal region BIMANUAL: uterus normal size, shape and consistency, no adnexal masses, and non-tender RECTOVAGINAL: deferred. NEURO: alert and oriented x3,exam grossly non-focal EXTREMITIES: normal ASSESSMENT/PLAN: 1) Health maintenance: Pap done with HPV. Mammogram ordered. Nutrition, exercise and routine health maintenance exams reviewed. Smoking cessation: Smoking cessation encouraged and resources provided. Colon cancer screening: up to date with screening 2022 Lipids/glucose: followed by PCP 2) Contraception: Progestin - only contraceptives and vasectomy. 3) STD screening: Declined STI check. 4) Follow up one year or sooner as needed Abnormal uterine bleeding - ICD9: 626.9, ICD10: N93.9 - Previously attempted EMB - Lysteda making periods 10-15 days long - Trial POP - COMPLETE BLOOD COUNT - THYROID STIMULATING HORMONE - T4 FREE/FREE THYROXINE - HEMOGLOBIN A1C - NORETHINDRONE (CONTRACEPTIVE) 0.35 MG TABLET - Follow up if periods (more content not included)... Normal [facility] Visit Reporton 1 06-13-2023 Urgent Care Visit Report [facility] [address], [address] [place] [id number] OFFICE VISIT Date of Service: 04/13/24 MR#: [id number] Acct: [id number] Name: SILVINA REYNOLDS Rep #: [id number] : 1975 Provider: ERIC Sunshine Age/Sex: 48/F Location: [facility] Status: Signed Intake Vital Signs 04/03/23 07:40 04/13/24 08:22 Height 5 ft 6 in 5 ft 6 in Weight: 179 lb BMI 28.8 BP 122/78 H Blood Pressure Location Lt brachial Position Sitting Respiration 14 Pulse 73 Pulse Source Monitor Temp 97 F L Temp Source Temporal Pulse Oximetry (%) 97 Oxygen Delivery Method room air Intake Visit Reasons: Cough Saw Superintendent Required: No Is patient in pain?: No Allergies No Known Allergies Allergy (Verified 04/13/24 08:10) Medications ???Medication ???Instructions ???Recorded ???Confirmed ???Type cholecalciferol (vitamin D3) 50 50 mcg PO DAILY 02/13/23 04/13/24 History mcg (2,000 unit) capsule magnesium citrate,mag oxide 250 mg 250 mg PO DAILY 02/13/23 04/13/24 History capsule mecobalamin (vitamin B12) 1,000 1,000 mcg PO DAILY 02/13/23 04/13/24 History mcg chewable tablet turmeric root extract 500 mg 500 mg PO DAILY 02/13/23 04/13/24 History capsule albuterol sulfate 90 mcg/actuation 2 puff inhalation Q6H PRN 04/13/24 04/13/24 Rx aerosol inhaler shortness of breath or wheezing #6.7 grams azithromycin 250 mg tablet See Rx Instructions PO .COMPLEX #6 04/13/24 04/13/24 Rx tabs Nurse's Note: States for 13 days she has had a cough that is nonproductive, she has wheezing. Feels rattling in her chest has been using mucinex and tylneol. Denies body aches,fevers, chills,head congestion. States she did have this in the beginning. [facility] Medical History (Updated 04/13/24 @ 08:42 by ERIC Sunshine) Skin cancer Rheumatoid arthritis Arthritis Smoker History of deviated nasal septum Family hx of colon cancer Surgical History History of carpal tunnel surgery of right wrist Family History Grandfather Colon cancer, Onset Age: 56 Colon cancer started at young age per patient Heart disease Grandfather Throat cancer Lung cancer Bone cancer Grandmother Leukemia Skin cancer Social History household members: spouse and children current occupational status: employed Smoking Status: Current every day smoker tobacco type: cigarettes HPI HPI Details: SILVINA REYNOLDS, is a 48 F who presents to the office today for evaluation of a persistent cough over the past 13 days. She states that her daughter brought home the [employer] and everyone in the house has become sick as a results. She notes symptoms of cough, congestion, wheezing, and headache. Her cough and wheezing are the only symptoms that remain and she feels that she can not kick it. She states that she has tried OTC Mucinex and Tylenol with minimal improvement of symptoms. Patient denies fever, myalgia, and chills. ROS Const Constitutional: No chills or fever(s) ENT ENT: Positive for nasal congestion, sinus pressure and nasal discharge; No ear or mastoid pain, ear discharge, sinus pain or post nasal drip Resp Respiratory: Positive for cough, chest congestion and wheezing; No excessive phlegm production or shortness of breath Cardio Cardiology: No chest pain at rest, chest pain with exertion, dyspnea on exertion, irregular heart rhythm or palpitations Gastro GI: No abdominal pain, change in bowel habits, constipation, diarrhea, nausea/dyspepsia or vomiting Musc Musculoskeletal: No joint pain, back pain, joint swelling or myalgias Aller/Imm Allergy/Immunologic: Positive for wheezing; No seasonal allergy symptoms Exam Const General: cooperative and no acute distress HENMT Ears: external ears normal and TM's normal bilaterally Nose: nares normal, nasal mucous membranes and turbinates normal and no nasal discharge Face and sinus: sinuses nontender Mouth: oral mucosae normal Throat: posterior oropharynx normal Eyes Conjunctivae: conjunctivae normal Sclera: sclerae normal Neck Lymphatic: no lymphadenopathy noted Resp Auscultation: Bilateral: Inspiratory Wheezes, Expiratory Wheezes and Rhonchi Cardio Rate: regular rate Rhythm: regular rhythm Heart Sounds: S1 normal and S2 normal Coding Level of Care Code New Pt Off vis,new,level 3 Patient Type New History Expanded Problem Focused Exam Problem Focused Medical Decision Making Low Complexity Diagnoses Bronchitis J40 Assessment and Plan Assessment and Plan (1) Bronchitis: Status: Acute Plan: Treat as bel (more content not included)... Normal [facility] UA DIP,URINE HCG (POC)on Beta HCG ( test) Ql (U) Negative Negative 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 Location:[facility], [address], [place], [address] [facility] POINT OF CARE [facility] US Pelvison 11-30-[address] [facility] Radiology Study observation (narrative) [facility] Laboratory - Chemistry and C hemistry - challengeOrdered By: Jtet Samuels on 04-03-2023 HCG ( test) Ql (U) Negative [facility] Comment on above: Very dilute urine sp ecimens, as indicated by a low specificgravity, may not contain warehouse representative levels of hCG. If is still suspected, a first morning urinespecimen should be collected 48 hours later and tested. Absolute lymphocyte countOrd ered By: Angel Antoniomartínez on 12-14-2022 Lymphocytes Auto (Unsp spec) [#/Vol] 2.78 10*3/uL 0.83-4.51 [facility] Basophil percentageOrdered B y: Angel Josi on 12-14-2022 Basophils/100 WBC (Bld) 0.6 % 0-1 [facility] Bilirubin [Mass/Vol] 0.50 mg/dL 0.20-1.00 [facility] Comment on above: For patients on eltr ombopag therapy, use of Dimension Tina TBIL is not recommended. Chloride [Moles/Vol] 111 mmol/L 98-107 [facility] Cholesterol [Mass/Vol] 207 mg/dL <200 [facility] Comment on above: <200 mg/dL Desirable 200-240 mg/dL Borderline >240 mg/dL High Risk Eosinophils/100 WBC (Bld) 4.6 % 0-5 [facility] Glucose [Mass/Vol] 79 mg/dL 74-106 [facility] Neutrophils (Bld) [#/Vol] 4.2 10*3/uL 2.0-7.7 [facility] Neutrophils/100 WBC (Bld) 52.1 % 47-70 [facility] Potassium [Moles/Vol] 4.2 mmol/L 3.5-5.1 [facility] Protein [Mass/Vol] 6.9 g/dL 6.4-8.2 [facility] Sodium [Moles/Vol] 140 mmol/L 136-145 [facility] Triglyceride [Mass/Vol] 204 mg/dL <199 [facility] Comment on above: The drugs N-Acetylcy steine and Metamizole may falsely depress this assay.Serum Triglycerides Reference Interval Normal <150 mg/dL Borderline high 150 - 199 mg/dL High 200 - 499 mg/dL Very High > or = 500 mg/dL WBC (Bld) [#/Vol] 8.1 10*3/uL 4.4-11.0 [facility] Blood erythrocytes count (nu mber/volume)Ordered By: Angel Prater on 12-14-2022 RBC (Bld) [#/Vol] 4.69 10*6/uL 4.2-5.4 [facility] Blood hemoglobin measurement (mass/volume)Ordered By: Angel Prater on 12-14-2022 Hemoglobin (Bld) [Mass/Vol] 14.5 g/dL 12.0-15.0 [facility] Blood lymphocytes/100 leukoc ytesOrdered By: Angel Prater on 12-14-2022 Lymphocytes/100 WBC (Bld) 34.3 % 19-41 [facility] Blood monocytes/100 leukocyt esOrdered By: Angel Prater on 12-14-2022 Monocytes/100 WBC (Bld) 7.7 % 0-10 [facility] Blood platelet mean volumeOr dered By: Angel Prater on 12-14-2022 Platelet mean volume (Bld) [Entitic vol] 10.5 fL 6.2-12.0 [facility] Determination of erythrocyte mean corpuscular volume (MCV)Ordered By: Angel Prater on 12-14-2022 MCV (RBC) [Entitic vol] 94.0 fL 81-99 [facility] Erythrocyte sedimentation ra teOrdered By: Angel Prater on 12-14-2022 ESR (Bld) [Velocity] 14 mm/h 0-30 [facility] Hematocrit Auto (Bld) [Volum e fraction]Ordered By: Angel Prater on 12-14-2022 Hematocrit (Bld) [Volume fraction] 44.1 % 37-47 [facility] Laboratory - Chemistry and C hemistry - challengeOrdered By: Angel Prater on 12-14-2022 ALP [Catalytic activity/Vol] 72 U/L 45-117 [facility] ALT [Catalytic activity/Vol] 96 U/L 13-56 [facility] CO2 [Moles/Vol] 24.0 mmol/L 21.0-32.0 [facility] Cobalamin (Vitamin B12) [Mass/Vol] 213 pg/mL 211-911 [facility] Globulin (S) [Mass/Vol] 3.5 g/dL 2.2-4.2 [facility] Urea nitrogen/Creatinine [Mass ratio] 19.9 mg/mg 10-20 [facility] Laboratory - Hematology and Cell countsOrdered By: Angel Prater on 12-14-2022 Erythrocyte distribution width (RBC) [Entitic vol] 43.4 fL 35.1-43.9 [facility] Erythrocyte distribution width (RBC) [Ratio] 12.7 % 11.6-14.6 [facility] Immature granulocytes/100 WBC (Bld) 0.700 % 0.0-0.9 [facility] Comment on above: IG% - Immature Granu locytes (promyelocytes, myelocytes and metamyelocytes) > 1% indicates that a LEFT SHIFT is Present. MCH (RBC) [Entitic mass] 30.9 pg 27.0-32.0 [facility] Nucleated RBC/100 WBC (Bld) [Ratio] 0 % 0-5 [facility] MCHC Auto (RBC) [Mass/Vol]Or dered By: Angel Prater on 12-14-2022 MCHC (RBC) [Mass/Vol] 32.9 g/dL 32-36 [facility] No Panel InformationOrdered By: Angel Prater on 12-14-2022 Anti-Nuclear Antibody Screen Negative Negative [facility] Comment on above: Performed at: [address] [id number] Director: Eliud Reese PhD, Phone: [phone] Estimated GFR (MDRD) Amer 115 mL/min >60 [facility] Comment on above: GFR Calc Estimated GFR (MDRD) Non-Af Amer 95 mL/min >60 [facility] Comment on above: Non- GFR Calc Thyroid Stimulating Hormone (TSH) 1.44 uIU/mL 0.358-3.74 [facility] Vitamin D 25-Hydroxy 18.3 ng/mL [facility] Comment on above: Vitamin D 25(OH) Sta tus Range Deficiency <20 ng/mL (50nmol/L) Insufficiency 20 - 30 ng/mL (50 - 75 nmol/L) Sufficiency 30 - 100 ng/mL (75 - 250 nmol/L) Toxicity >100 ng/mL (>250 nmol/L) Platelets bldOrdered By: Anastacia zhangscott Josi on 12-14-2022 Platelets (Bld) [#/Vol] 213 10*3/uL 150-450 [facility] Serum or plasma C reactive p rotein measurement (mass/volume)Ordered By: Angel Prater on 12-14-2022 CRP [Mass/Vol] mg/L 0.0-3.0 [facility] Comment on above: C-Reactive Protein ( CRP) provides useful information for thediagnosis, therapy and monitoring of inflammatory processesand associated diseases. For the evaluation of Relative Riskfor Cardiovascular Disease, a High Sensitivity CRP (HSCRP)should be ordered. Serum or plasma albumin neelam urement (mass/volume)Ordered By: Angel Prater on 12-14-2022 Albumin [Mass/Vol] 3.4 g/dL 3.2-5.0 [facility] Serum or plasma albumin/glob ulin mass ratioOrdered By: Angel Prater on 12-14-2022 Albumin/Globulin [Mass ratio] 1.0 {ratio} 0.9-2.4 [facility] Serum or plasma calcium neelam urement (mass/volume)Ordered By: Angel Prater on 12-14-2022 Calcium [Mass/Vol] 8.8 mg/dL 8.5-10.1 [facility] Serum or plasma cholesterol in HDL measurement (mass/volume)Ordered By: Angel Prater on 12-14-2022 Cholesterol in HDL [Mass/Vol] 44 mg/dL >40 [facility] Comment on above: The drugs N-Acetylcy steine and Metamizole may falsely depress this assay. Reference Range HDL <40 mg/dL Low HDL Cholesterol HDL >or= 60 mg/dL High HDL Cholesterol Serum or plasma cholesterol in VLDL measurement (mass/volume)Ordered By: Angel Prater on 12-14-2022 Cholesterol in VLDL [Mass/Vol] 41 mg/dL 5-40 [facility] Serum or plasma creatinine m easurement (mass/volume)Ordered By: Angel Prater on 12-14-2022 Creatinine [Mass/Vol] 0.70 mg/dL 0.55-1.02 [facility] Comment on above: The validity of the calculated GFR & GFRAA in patients over 70 years has not been determined. Clinical correlation is essential. Serum or plasma low density lipoprotein (LDL) cholesterol measurement (mass/volume)Ordered By: Angel Prater on 12-14-2022 Cholesterol in LDL [Mass/Vol] 122 mg/dL 0-130 [facility] Serum or plasma urea nitroge n measurement (mass/volume)Ordered By: Angel Prater on 12-14-2022 Urea nitrogen [Mass/Vol] 14 mg/dL 7-18 [facility] Serum rheumatoid factor dete ctionOrdered By: Angel Prater on 12-14-2022 Rheumatoid factor Ql (S) 241.0 IU/mL <15 [facility] Thin prep Papanicolaou smear with manual screeningOrdered By: Angel Prater on 12-14-2022 Thin prep Papanicolaou smear with manual screening 48 U/L 15-37 [facility] Thin prep Papanicolaou smear with manual screening 5 5-15 [facility] Cervical or vagninal specime n microscopic examination by cytology stain (reported ason 10-26-2021 Cytology report Cyto stain Doc (Cvx/Vag) Comment [facility] Work Phone: Comment on above: The Pap smear is a s creening test designed to aid in thedetection of premalignant and malignant conditions of theuterine cervix. It is not a diagnostic procedure andshould not be used as the sole means of detecting cervicalcancer. Both false-positive and false-negative reports dooccur. Detection in cervical specim en of any of human papilloma virus (HPV) 16, 18, 31, 33,on 10-26-2021 HPV 16+18+31+33+35+39+45+51 +52+56+58+59+66+68 DNA Probe+sig amp Ql (Cvx) Negative Negative [facility] Work Phone: Comment on above: This nucleic acid am plification test detects fourteen high-risk HPV types (16,18,31,33,35,39,45,51,52,56,58,59,66,68)without differentiation.Performed at: [facility] [id number] [place], [place] [id number] Director: Fran Winkler MD, Phone: [phone] at: [facility] Lab[address] [id number] Director: Ileana Rodriguez MD, Phone: [phone] at: = - [facility] [id number] Director: Ileana Rodriguez MD, Phone: [phone] Laboratory - Chemistry and C hemistry - challengeon 10-26-2021 Free T4 [Mass/Vol] 1.00 ng/dL 0.76-1.46 [facility] Work Phone: Laboratory - Cytologyon 10-04 Valve Mechanic Cyto stain Nom (Cvx/Vag) [ID] Comment [facility] Work Phone: Comment on above: Dinesh Rodríguez, Cyto technologist (ASCP) Laboratory - Miscellaneous t estson 10-26-2021 Service comment (Unsp spec) [Interp] Comment [facility] Work Phone: Comment on above: This liquid based Th inPrep(R) pap test was screened withthe use of an image guided system. Service comment (Unsp spec) [Interp] . [facility] Work Phone: No Panel Informationon 10-26 Follicle Stimulating Hormone 3.8 mIU/mL [facility] Work Phone: Comment on above: NORMAL REFERENCE RAN GES FEMALE FOLLICULAR 2.3 - 12.6 mIU/mL MID-CYCLE PEAK 5.2 - 17.5 mIU/mL LUTEAL 1.7 - 12.9 mIU/mL POST-MENOPAUSAL ON MHT 5.9 - 72.8 mIU/mL NOT ON MHT 12.7 - 132.2 mlU/mL MALE 0.7 - 10.8 mIU/mL Free Triiodothyronine (T3) pg/dL 3.0 pg/mL 2.18-3.98 [facility] Work Phone: Luteinizing Hormone 6.3 mIU/mL [facility] Work Phone: Comment on above: NORMAL REFERENCE RAN [facility] FEMALE FOLLICULAR 1.9 - 26.2 mIU/mL MID-CYCLE PEAK 22.8 - 76.1 mIU/mL LUTEAL 0.6 - 16.6 mIU/mL POST-MENOPAUSAL ON MHT 1.1 - 52.4 mIU/mL NOT ON MHT 8.6 - 61.8 mIU/mL MALE 1.2 - 10.6 mIU/mL Thyroid Stimulating Hormone (TSH) 1.53 uIU/mL 0.358-3.74 [facility] Work Phone: Pathology report final diagnosis Narrative Comment [facility] Work Phone: Comment on above: NEGATIVE FOR INTRAEP ITHELIAL LESION OR MALIGNANCY. Serum or plasma estradiol (E 2) measurement (mass/volume)on 10-26-2021 E2 [Mass/Vol] 182.5 pg/mL [facility] Work Phone: Comment on above: NORMAL REFERENCE RAN [facility] FEMALE FOLLICULAR 21.4 - 164.8 pg/mL MID-CYCLE PEAK 49.9 - 367.2 pg/mL LUTEAL 40.2 - 259.0 pg/mL POST-MENOPAUSAL ON MHT <11.0 - 462.1 pg/mL NOT ON MHT <11.0 - 58.3 pg/mL MALE <11.0 - 52.5 pg/mL NOTE:[facility] HAS CONFIRMED THE DRUG FULVETRANT (FASLODEX) MAY CAUSE FALSELY ELEVATED ESTRADIOL RESULTS WHEN USING THIS TEST METHOD. IF PATIENT IS TAKING FULVESTRANT AN ALTERNATIVE METHOD SHOULD BE USED TO DETERMINE ESTRADIOL CONCENTRATION. Serum or plasma prolactin me asurement (mass/volume)on 10-26-2021 Prolactin [Mass/Vol] 3.9 ng/mL [facility] Work Phone: Comment on above: NORMAL REFERENCE RAN GES FEMALE NON- 2.2 - 30.3 ng/mL 8.1 - 347.6 ng/mL POST-MENOPAUSAL 0.7 - 31.5 ng/mL MALE 2.5 - 17.4 ng/mL Vital Signs Date Time Vital Sign Value Performing Clinician Faci lity 01-27-2025 07:19-0400 Body height 168.9 cm Ann Giang BIOSTATISTICS PROFESSOR.BONE DRIER OPERATOR Work Phone: [facility] 01-27-2025 07:19-0400 Body mass index (BMI) [Ratio] 27.98 kg/m2 Ann Giang BIOSTATISTICS PROFESSOR.BONE DRIER OPERATOR Work Phone: [facility] 01-27-2025 07:19-0400 Body weight 79.83 kg Ann Giang BIOSTATISTICS PROFESSOR.BONE DRIER OPERATOR Work Phone: [facility] 01-27-2025 07:19-0400 Diastolic blood pressure 68 mm[Hg] Ann Giang BIOSTATISTICS PROFESSOR.BONE DRIER OPERATOR Work Phone: [facility] 01-27-2025 07:19-0400 Systolic blood pressure 112 mm[Hg] Ann Marquezury BIOSTATISTICS PROFESSOR.BONE DRIER OPERATOR Work Phone: [facility] 12-08-2023 11:06-0400 Body mass index (BMI) [Ratio] 28.08 kg/m2 Paula Juarez MD Work Phone: [facility] 12-08-2023 11:06-0400 Body weight 78.93 kg Paula Juarez MD Work Phone: [facility] 12-08-2023 11:06-0400 Diastolic blood pressure 70 mm[Hg] Paula Juarez MD Work Phone: [facility] 12-08-2023 11:06-0400 Systolic blood pressure 126 mm[Hg] Paula Juarez MD Work Phone: [facility] 11-14-2023 10:37-0400 Body height 167.6 cm Paula Juarez MD Work Phone: [facility] 11-14-2023 10:37-0400 Body mass index (BMI) [Ratio] 29.21 kg/m2 Paula Juarez MD Work Phone: [facility] 11-14-2023 10:37-0400 Body weight 82.1 kg Paula Juarez MD Work Phone: [facility] 11-14-2023 10:37-0400 Diastolic blood pressure 82 mm[Hg] Paula Juarez MD Work Phone: [facility] 11-14-2023 10:37-0400 Systolic blood pressure 138 mm[Hg] Paula Juarez MD Work Phone: [facility] 04-03-2023 09:00-0400 Body temperature 98.8 [degF] Dr. Angel Prater Work Phone: [facility] 04-03-2023 09:00-0400 Diastolic blood pressure 63 mm[Hg] Dr. Angel Prater Work Phone: [facility] 04-03-2023 09:00-0400 Heart rate 69 /min Dr. Angel Prater Work Phone: [facility] 04-03-2023 09:00-0400 Respiratory rate 16 /min Dr. Angel Prater Work Phone: [facility] 04-03-2023 09:00-0400 SaO2% (BldA) [Mass fraction] 99 % Dr. Angel Prater Work Phone: [facility] 04-03-2023 09:00-0400 Systolic blood pressure 105 mm[Hg] Dr. Angel Prater Work Phone: [facility] 04-03-2023 07:40-0400 Body height 167.[address] Angel Prater Work Phone: [facility] 04-03-2023 07:40-0400 Body mass index (BMI) [Ratio] 28.7 kg/m2 Dr. Angel Prater Work Phone: [facility] 04-03-2023 07:40-0400 Body weight 80.[address] Angel Prater Work Phone: [facility] 02-13-2023 15:40-0400 Body mass index (BMI) [Ratio] 29 kg/m2 Dr. Angel Prater Work Phone: [facility] 02-13-2023 15:40-0400 Body weight 81.[address] Angel Prater Work Phone: [facility] Encounters Encounter Date Encounter Type Care Provider Facility Start: 01-30-2025 ambulatory Ann Giang Facility:[facility] Start: 01-27-2025 End: 01-27-2025 Patient encounter procedure Ann Giang APRN.BONE DRIER OPERATOR Work Phone: OB/Gynecology Comment on above: Encounter for gyneco logical examination (general) (routine) with abnormal findings (Primary Dx); Screening for cervical cancer; Encounter for screening for human papillomavirus (HPV); Encounter for screening mammogram for breast cancer; Abnormal uterine bleeding Start: 01-27-2025 End: 01-27-2025 Patient encounter status Annzan Marquezming LLAMASBONE DRIER OPERATOR Work Phone: [facility] Start: 01-27-2025 End: 01-27-2025 ambulatory ANN VIRGINIAMING Facility:[facility] Start: 01-27-2025 Encounter for gynecological examination (general) (routine) with abnormal findings ANN GIANG [facility] Start: 04-13-2024 End: 04-13-2024 ambulatory Jed Prater Facility[facility] Start: 12-08-2023 End: 12-08-2023 Patient encounter procedure Paula Juarez MD Work Phone: OB/Gynecology Comment on above: Menorrhagia with reg ular cycle (Primary Dx) Start: 12-04-2023 Telephone encounter Paula arnold MD Work Phone: OB/Gynecology Comment on above: Follow Up Start: 11-30-2023 End: 11-30-2023 ambulatory [facility]/Gynecology Start: 11-30-2023 End: 11-30-2023 Patient encounter procedure [employer] 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 Start: 04-03-2023 Non-patient / Non-visit Dr. Evaristo Prater Work Phone: [facility] Start: 04-03-2023 End: 04-03-2023 Admission to same day surgery center Dr. Angel Prater Work Phone: [facility]-Endoscopy Work Phone: Start: 04-03-2023 End: 04-03-[address] Angel Prater Work Phone: [facility] Work Phone: Start: 02-13-2023 Non-patient / Non-visit Dr. Evaristo Prater Work Phone: [facility] Work Phone: Start: 12-14-2022 End: 12-14-2022 ambulatory [facility] Work Phone: Start: 12-14-2022 End: 12-14-2022 Patient encounter procedure [facility] Work Phone: Start: 11-30-2022 End: 11-30-2022 ambulatory [facility] Work Phone: Start: 11-30-2022 End: 11-30-2022 Patient encounter procedure [facility]-Outpatient Breast Imaging Work Phone: Start: 11-22-2022 End: 11-22-2022 ambulatory [facility] Work Phone: Start: 11-22-2022 End: 11-22-2022 Patient encounter procedure [facility]-Outpatient Breast Imaging Start: 11-02-2021 End: 11-02-2021 Patient encounter procedure [facility] Start: 10-26-2021 End: 10-26-2021 Patient encounter procedure [facility]-Laboratory, [facility] clinical provider trainer Off Procedures Date Procedure Procedure Detail Performing Clinician Start: 12-08-2023 UA DIP,URINE HCG (POC) Paula Juarez MD Work Phone: Start: 11-30-2023 Us pelvic nonobstetr ic real-time image complete Paula Juarez MD Work Phone: Start: 04-03-[address] Adan Prater Work Phone: Start: 11-30-2022 Mammography Start: 11-30-2022 Ultrasonography of breast Start: 11-22-2022 Screening mammography Start: 11-02-2021 Screening mammography Plan of Treatment Date Care Activity Detail Author Start: 10-26-2026 Screening for malign ant neoplasm of cervix Cervical Cancer Screening [facility] Start: 06-09-2026 Urine microalbumin profile DTaP,Tdap,Td Vaccine (2 - Td or Tdap) [facility] Start: 02-03-2025 Influenza vaccination Influenza Vacc ine (#1) [facility] Start: 01-27-2025 End: 04-28-2025 CBC panel - Blood by Automated count COMPLETE BLOOD COUNT Lab Routine Abnormal uterine bleeding Expected: 01/27/2025, Expires: 04/28/[address] [facility] Comment on above: Expected: 01/27/2025 , Expires: 04/28/2025 Start: 01-27-2025 End: 04-28-2025 Hemoglobin A1c in Blood HEMOGLOBIN A1C Lab Routine Abnormal uterine bleeding Expected: 01/27/2025, Expires: 04/28/[address] [facility] Comment on above: Expected: 01/27/2025 , Expires: 04/28/2025 Start: 01-27-2025 End: 04-28-2025 Thyrotropin [Units/volume] in Serum or Plasma THYROID STIMULATING HORMONE Lab Routine Abnormal uterine bleeding Expected: 01/27/2025, Expires: 04/28/[address] [facility] Comment on above: Expected: 01/27/2025 , Expires: 04/28/2025 Start: 01-27-2025 End: 04-28-2025 Thyroxine (T4) free [Mass/volume] in Serum or Plasma T4 FREE/FREE THYROXINE Lab Routine Abnormal uterine bleeding Expected: 01/27/2025, Expires: 04/28/[address] [facility] Comment on above: Expected: 01/27/2025 , Expires: 04/28/2025 Start: 11-30-2024 Screening for malign ant neoplasm of breast Mammogram Screening [facility] Start: 02-04-2024 Influenza vaccination [facility] Start: 12-08-2023 End: 12-08-2023 Patient encounter procedure 12/08/2023 10:50 AM EDT Office Visit OB/Gynecology [address] [place] [id number] Paula Juarez MD [address] [place] [address] [facility] Comment on above: [facility] Start: 11-30-2023 End: 11-30-2023 Manual pelvic examination 11/30/2023 8:00 AM EDT Procedure OB/Gynecology [address] [place] [address] Pelvic- Menorrhagia with regular cycle [N92.0] OB/Gynecology Comment on above: Pelvic- Menorrhagia with regular cycle [N92.0] Start: 11-14-2023 End: 11-13-2024 US Pelvis PELVIC US [facility] Routine Menorrhagia with regular cycle Expected: 11/14/2023, Expires: 11/13/[address] [facility] Comment on above: Expected: 11/14/2023 , Expires: 11/13/2024 Start: 06-05-2023 Behavioral Health Screening Behavioral Health Screening [facility] Start: 04-03-2023 [facility] Start: 02-03-2023 Covid-19 Vaccine () Covid-19 Vaccine () [facility] Start: 2021 Diabetes Screening Diabetes Screenin g [facility] Start: 2021 Lipid panel Lipid Screening [facility] Start: 2021 Screening for malign ant neoplasm of colon [facility] Start: 2016 Screening for malign ant neoplasm of breast Mammogram Screening [facility] Start: 1995 Hepatitis B Vaccine (1 of 3 - 19+ 3-dose series) Hepatitis B Vaccine (1 of 3 - 19+ 3-dose series) [facility] Start: 1995 Pneumococcal vaccination Pneumococcal Vaccine (1 of 2 - PCV) [facility] Start: 1994 Anxiety Screening Anxiety Screening [facility] Start: 1994 Depression Screening Depression Scre ening [facility] Start: 1994 Hepatitis C screening Hepatitis C Sc reening [facility] Start: 1994 HIV screening HIV Screening [facility] Start: 1982 Pneumococcal vaccination Pneumococcal Vaccine (1 of 2 - PCV) [facility] Colonoscopy [facility] End: 12-13-2024 DBT Breast - bilateral screening ALISIA SCREENING [facility] Routine Encounter for screening mammogram for breast cancer 1 Occurrences starting 11/14/2023 until 12/13/2024 [facility] Work Phone: Comment on above: 1 Occurrences starti ng 11/14/2023 until 12/13/2024 End: 02-26-2026 DBT Breast - bilateral screening ALISIA SCREENING [facility] Radiology Routine Encounter for screening mammogram for breast cancer 1 Occurrences starting 01/27/2025 until 02/26/[address] [facility] Comment on above: 1 Occurrences starti ng 01/27/2025 until 02/26/2026 Endometrial bx w/wo endocervix bx w/o dilat spx ENDOMETRIAL BIOPSY Procedures Routine Menorrhagia with regular cycle Ordered: 12/08/2023 [facility] Work Phone: Comment on above: Ordered: 12/08/2023 PAP TEST PAP TEST Lab Rou milana Screening for cervical cancer Encounter for screening for human papillomavirus (HPV) Ordered: 01/27/2025 [facility] Work Phone: Comment on above: Ordered: 01/27/2025 Patient referral [facility] Work Phone: Immunizations Immunization Date Immunization Notes Care Provider Savanna mancuso 04-22-2022 COVID-19 original vaccine, full dose, monovalent (MODERNA) Ann Giang APRN.BONE DRIER OPERATOR Work Phone: [facility] 04-22-2022 Influenza, injectabl e, Madin Beba Canine Kidney, preservative free, quadrivalent Ann Haury BIOSTATISTICS PROFESSOR.BONE DRIER OPERATOR Work Phone: [facility] 04-22-2022 influenza virus vacc ine, unspecified formulation Paula Juarez MD Work Phone: [facility] 05-26-2021 Influenza, injectabl e, Madin Sheridan Canine Kidney, preservative free, quadrivalent Ann Haury BIOSTATISTICS PROFESSOR.BONE DRIER OPERATOR Work Phone: [facility] 02-04-2020 influenza, injectabl e, quadrivalent, preservative free Ann Haury BIOSTATISTICS PROFESSOR.BONE DRIER OPERATOR Work Phone: [facility] 03-17-2019 Influenza, injectabl e, Madin Sheridan Canine Kidney, preservative free, quadrivalent Ann Haury BIOSTATISTICS PROFESSOR.BONE DRIER OPERATOR Work Phone: [facility] 04-02-2018 Influenza, injectabl e, Madin Sheridan Canine Kidney, preservative free, quadrivalent Ann Haury BIOSTATISTICS PROFESSOR.BONE DRIER OPERATOR Work Phone: [facility] 06-09-2016 tetanus toxoid, redu miguel angel diphtheria toxoid, and acellular pertussis vaccine, adsorbed Ann Haury BIOSTATISTICS PROFESSOR.BONE DRIER OPERATOR Work Phone: [facility] Payers Date Payer Category Payer Self-pay [id number] 2023 [facility] PPO OOS [id number] 2023 Unknown [employer] BLUE CARD PPO OOS [id number] 2023-Present [phone] [address] [place] [address] PPO [id number] 2023 Unknown [id number] Unknown [id number] Unknown [id number] Social History Date Type Detail Facility Start: 01-09-2019 End: 04-03-2023 Tobacco smoking status NCIS Unknown if ever smoked [facility] Start: 01-09-2019 Cigarettes [facility] Start: 1975 Sex Assigned At Female [facility] Start: 11-14-2023 Tobacco smoking status NHIS Smokes tobacco daily [facility] Start: 11-14-2023 Tobacco use and exposure Smokeless tobacco non-user [facility] Start: 11-14-2023 End: 01-27-2025 Alcohol intake Current drinker of alcohol (finding) [facility] Start: 11-14-2023 End: 01-27-2025 History of Social function [facility] Start: 11-14-2023 End: 01-27-2025 Tobacco use panel [facility] Start: 05-06-2012 National Score (1-100), lower number is lower risk [address] [facility] Start: 11-14-2023 Tobacco Comment .[facility]pkg day [facility] Start: 1975 Sex Assigned At Not on file [facility] NEGATED: Highlighted row [facility] Goals Date Patient Goal Desired Activity /State Mental Status Date Assessment Result Facility 04-03-2023 Cognitive function Voice/Name [facility] Work Phone: Clinical Notes 10-26-2021 to 01-27-2025 Patient Ann Santoro APRN.BONE DRIER OPERATOR - 01/27/2025 7:11 AM EDTPatient InstructionsGodwin, Paula, MD - 12/08/2023 10:55 AM EDTTelephone Encounter - Charity Pike RN - 12/04/2023 9:39 AM EDT Note Date & Type Note Facility 01-27-2025 Ann Mcguire APRN.CNP - 01/27/2025 7:30 AM EDT Calcium and Vitamin D Supplementation For more information:My [facility] Osteopenia Calcium Age Recommended Daily Allowance Age 19-50 1000 mg elemental calcium per day Age > 50 or menopausal 1200 mg elemental calcium per day Vitamin D Age Recommended Daily Allowance Age < 70 600 international units Vitamin D per day Age > 70 800 international units Vitamin D per day Centers for Disease Control and Prevention recommends that all adults engage in at least 150 to 300 minutes per week of moderate-intensity activity or 75 minutes to 150 minutes per week of vigorous-intensity aerobic physical activity (or a combination of both). [place] College of Obstetrics and Gynecology (ACOG) and several other major osteoporosis guideline groups recommend screening for osteoporosis with Dual-energy X-ray Absorptiometry (DXA) in all postmenopausal [facility] s Smoking Cessation Program The [facility] Smoking Cessation Program is a comprehensive, multifaceted program that can be tailored to your individual needs. We offer a variety of services designed to help you throughout the process, including office visits, distance health visits (virtual or telephone), and the eCoach program or pharmacy consultations. To schedule, call [phone] Appointments: An office visit: This is a one-on-one approach where you go to an office and meet with the provider to discuss your options for quitting. Distance health visits: This type of visit can be completed via virtual visit or telephone visit. Virtual visits require a smartphone, tablet or computer with access to a webcam, microphone and Internet connection. You will need to sign up for [facility] prior to your virtual visit. Telephone visits can be completed via audio only if patient does not have access to the above Pharmacotherapy Nicotine replacement therapy (patches, gum, lozenges, inhalers or nasal spray) Bupropion (Wellbutrin) Chantix Integrative and Lifestyle Medicine Services: Acupuncture Holistic Psychotherapy Meditation Yoga And more The eCoach program Expert tips tailored to you Behavioral replacements Recognizing individual triggers On your schedule Pharmacy consultation You can meet with a pharmacist (either online or in person) to discuss smoking cessation medications, including: Nicotine replacement therapy: gum, patches, lozenges, inhalers or nasal spray Bupropion SR Varenicline (Chantix ) The [place] Cancer Society (ACS) has a section devoted to quitting tobacco with information on where to get help, interactive tools, the relationship of tobacco and cancer, how to keep your kids smoke-free, smoke-free communities and the ACS s annual [place] Smokeout. Visit this link for more info: https://www.cancer.org/cancer/r isk-prevention/tobacco/guide-qu itting-smoking.html The [place] Lung Association has tools, tips, support and fact sheets to help you stop smoking or to help a loved one quit. There s also more information about [place] From Smoking , the program we use in our smoking classes at [facility]. Visit this link for more info: https://www.lung.org/quit-smoki ng/ltow-rvqrboh-cbmj-smoking The National Cancer [place] s site, Smokefree.gov, has an abundance of free and accurate resources to encourage smokers to stop: Smokefree apps for your smartphone offer individualized guidance once you input your information You can sign up for the SmokefreeHealthy LabsT text messaging program, which sends you daily text messages with encouragement, tips and advice to help making quitting easier Create a personalized Quit Plan by choosing a quit date and answering seven questions Take a quiz on your withdrawal symptoms See how you can prepare to quit 3-602-DBGV-NOW is the national portal to a network of state quitlines. Quitlines offer evidence-based support--like counseling, referrals to local programs, and free medication--to people who want to quit tobacco. documented in this encounter [facility] 01-27-2025 Note HNO ID: [id number] Author: ANN GIANG APRN.CNP Service: ? Author Type: Nurse Practitioner Type: Progress Notes Filed: 01/27/2025 07:43 Note Text: Silvina is a 49 year old who presents for an annual gynecologic exam without complaints. Still get period: Yes LMP: 01/04/2025 Menses: cycles every 28 to 30 days days and 5 days of flow Menstrual flow: heavy Bleeding amount bothersome: Yes, soaking pad/tampon every 3-4 hours Bleeding between periods: No Period symptoms: None Sexually active: Yes Contraception: vasectomy Contraception frequency: always HPV vaccine: No HPV:not sure Last pap smear: 2002 History of abnormal pap: Yes Colposcopy: Yes: early Leep: Yes: early Cone biopsy: No. Bothersome pelvic pain: Yes Last mammogram: 2023 [facility] OB History Gravida2 Para2 Term0 Preterm0 AB0 Living2 SAB0 IAB0 Ectopic0 Multiple0 Live Births0 Stave Bolt Equalizer History LMP: 11/24/2023, Having periods Age at Menarche: Age at First : Age at Menopause: Stave Bolt Equalizer History Comments: Sexual Activity: Yes; Male Contraception: No contraception data on record PAST MEDICAL HISTORY Diagnosis Date Rheumatoid arthritis (HCC) currently getting screened for Rheumatoid PAST SURGICAL HISTORY Procedure Laterality Date REPAIR OF NASAL SEPTUM REVISE MEDIAN N/CARPAL TUNNEL SURG FAMILY HISTORY Problem Relation Age of Onset No Known Problems Mother No Known Problems Father No Known Problems Sister Colon Cancer Maternal Grandmother Cancer Maternal Grandfather Leukemia Paternal Grandmother Colon Cancer Paternal Grandfather SOCIAL HISTORY Social History Tobacco Use Smoking status: Every Day Smokeless tobacco: Never Tobacco comments: .25pkg day Vaping Use Vaping status: Never Used Substance Use Topics Alcohol use: Yes Comment: rarely Drug use: No REVIEW OF SYSTEMS Abdomen: No abdominal pain, nausea, vomiting, diarrhea, or constipation. No bloating, early satiety, indigestion, or increased flatulence. Bladder: No dysuria, gross hematuria, urinary frequency, urinary urgency, or incontinence. Breast: No breast lumps, nipple d/c, overlying skin changes, redness or skin retraction. Allergies and current medication updated:Yes SENSITIVE EXAM: The sensitive examination was discussed with the Patient or Patient's Authorized Executive Recruiter. As applicable, any other physician, advance practice provider, medical student, or other health professional student that will be observing or involved in the sensitive examination for educational or training purposes was discussed with the Patient or Authorized Executive Recruiter. The Patient or Authorized Executive Recruiter has agreed to proceed with the sensitive examination. (Sensitive examination includes inspection and/or palpation of the breasts, pelvis, prostate and anorectal regions). EXAM: BP 112/68 Ht 5' 6.5 (1.69m) Wt 176 lb (79.8kg) LMP 01/04/2025 BMI 27.98 kg/(m2). GENERAL: pleasant, female in no apparent distress HEENT: Normocephalic, atraumatic, mucus membranes moist, and no lesions NECK: Supple, full range of motion, no adenopathy, and thyroid normal DERMATOLOGY: Normal, without lesions, non-icteric, and non-hirsute BREAST: soft, non-tender, symmetric, no dominant mass, normal nipple-areolar complex, no lymphadenopathy, and no nipple discharge CHEST: Normal inspiratory effort ABDOMEN: soft, non-tender, and no masses PELVIC: external genitalia normal, normal Bartholin's glands, urethra, Succasunna's glands, no vulvar lesions, no cervical lesions, + nabothian cysts noted good vaginal support, physiologic discharge present, normal appearing perineal body and perianal region BIMANUAL: uterus normal size, shape and consistency, no adnexal masses, and non-tender RECTOVAGINAL: deferred. NEURO: alert and oriented x3,exam grossly non-focal EXTREMITIES: normal ASSESSMENT/PLAN: 1) Health maintenance: Pap done with HPV. Mammogram ordered. Nutrition, exercise and routine health maintenance exams reviewed. Smoking cessation: Smoking cessation encouraged and resources provided. Colon cancer screening: up to date with screening 2022 Lipids/glucose: followed by PCP 2) Contraception: Progestin - only contraceptives and vasectomy. 3) STD screening: Declined STI check. 4) Follow up one year or sooner as needed Abnormal uterine bleeding - ICD9: 626.9, ICD10: N93.9 - Previously attempted EMB - Lysteda making periods 10-15 days long - Trial POP - COMPLETE BLOOD COUNT - THYROID STIMULATING HORMONE - T4 FREE/FREE THYROXINE - HEMOGLOBIN A1C - NORETHINDRONE (CONTRACEPTIVE) 0.35 MG TABLET - Follow up if periods remain heavy with progesterone only pill Ann Giang APRN.[facility] 01-27-2025 History of Presen t illness Narrative Silvina is a 49 year old who presents for an annual gynecologic exam without complaints. Still get period: Yes LMP: 01/04/2025 Menses: cycles every 28 to 30 days days and 5 days of flow Menstrual flow: heavy Bleeding amount bothersome: Yes, soaking pad/tampon every 3-4 hours Bleeding between periods: No Period symptoms: None Sexually active: Yes Contraception: vasectomy Contraception frequency: always HPV vaccine: No HPV:not sure Last pap smear: 2002 History of abnormal pap: Yes Colposcopy: Yes: early 20s Leep: Yes: early 20s Cone biopsy: No. Bothersome pelvic pain: Yes Last mammogram: 2023 [facility] OB History Gravida2 Para2 Term0 Preterm0 AB0 Living2 SAB0 IAB0 Ectopic0 Multiple0 Live Births0 Stave Bolt Equalizer History LMP: 11/24/2023, Having periods Age at Menarche: Age at First : Age at Menopause: Stave Bolt Equalizer History Comments: Sexual Activity: Yes; Male Contraception: No contraception data on record PAST MEDICAL HISTORY Diagnosis Date Rheumatoid arthritis (HCC) currently getting screened for Rheumatoid PAST SURGICAL HISTORY Procedure Laterality Date REPAIR OF NASAL SEPTUM REVISE MEDIAN N/CARPAL TUNNEL SURG FAMILY HISTORY Problem Relation Age of Onset No Known Problems Mother No Known Problems Father No Known Problems Sister Colon Cancer Maternal Grandmother Cancer Maternal Grandfather Leukemia Paternal Grandmother Colon Cancer Paternal Grandfather SOCIAL HISTORY Social History Tobacco Use Smoking status: Every Day Smokeless tobacco: Never Tobacco comments: .25pkg day Vaping Use Vaping status: Never Used Substance Use Topics Alcohol use: Yes Comment: rarely Drug use: No REVIEW OF SYSTEMS Abdomen: No abdominal pain, nausea, vomiting, diarrhea, or constipation. No bloating, early satiety, indigestion, or increased flatulence. Bladder: No dysuria, gross hematuria, urinary frequency, urinary urgency, or incontinence. Breast: No breast lumps, nipple d/c, overlying skin changes, redness or skin retraction. Allergies and current medication updated:Yes SENSITIVE EXAM: The sensitive examination was discussed with the Patient or Patient's Authorized Executive Recruiter. As applicable, any other physician, advance practice provider, medical student, or other health professional student that will be observing or involved in the sensitive examination for educational or training purposes was discussed with the Patient or Authorized Executive Recruiter. The Patient or Authorized Executive Recruiter has agreed to proceed with the sensitive examination. (Sensitive examination includes inspection and/or palpation of the breasts, pelvis, prostate and anorectal regions). EXAM: BP 112/68 Ht 5' 6.5 (1.69m) Wt 176 lb (79.8kg) LMP 01/04/2025 BMI 27.98 kg/(m^2). GENERAL: pleasant, female in no apparent distress HEENT: Normocephalic, atraumatic, mucus membranes moist, and no lesions NECK: Supple, full range of motion, no adenopathy, and thyroid normal DERMATOLOGY: Normal, without lesions, non-icteric, and non-hirsute BREAST: soft, non-tender, symmetric, no dominant mass, normal nipple-areolar complex, no lymphadenopathy, and no nipple discharge CHEST: Normal inspiratory effort ABDOMEN: soft, non-tender, and no masses PELVIC: external genitalia normal, normal Bartholin's glands, urethra, Succ[place]unna's glands, no vulvar lesions, no cervical lesions, + nabothian cysts noted good vaginal support, physiologic discharge present, normal appearing perineal body and perianal region BIMANUAL: uterus normal size, shape and consistency, no adnexal masses, and non-tender RECTOVAGINAL: deferred. NEURO: alert and oriented x3,exam grossly non-focal EXTREMITIES: normal ASSESSMENT/PLAN: 1) Health maintenance: Pap done with HPV. Mammogram ordered. Nutrition, exercise and routine health maintenance exams reviewed. Smoking cessation: Smoking cessation encouraged and resources provided. Colon cancer screening: up to date with screening 2022 Lipids/glucose: followed by PCP 2) Contraception: Progestin - only contraceptives and vasectomy. 3) STD screening: Declined STI check. 4) Follow up one year or sooner as needed Abnormal uterine bleeding - ICD9: 626.9, ICD10: N93.9 - Previously attempted EMB - Lysteda making periods 10-15 days long - Trial POP - COMPLETE BLOOD COUNT - THYROID STIMULATING HORMONE - T4 FREE/FREE THYROXINE - HEMOGLOBIN A1C - NORETHINDRONE (CONTRACEPTIVE) 0.35 MG TABLET - Follow up if periods remain heavy with progesterone only pill Ann Giang APRN.[facility] documented in this encounter [facility] 12-08-2023 Instructions Kristen Osborne MA - 12/08/2023 10:57 AM EDT YOUR RECOVERY After your biopsy you may have: Vaginal bleeding (less than a normal menstrual period) Mild cramping Do NOT put anything in the vagina for 1 week after your endometrial biopsy. This includes: tampons douches and refraining from having sexual intercourse If you have any discomfort, you may take an over the counter pain medication (motrin, advil, ibuprofen, tylenol, etc). If this does not relieve your discomfort, contact the office. It is okay to wear a sanitary pad until the discharge and spotting stops. RISKS Although problems seldom occur with endometrial biopsies, there can be some complications. You may feel faint during and shortly after the procedure as well as have some bleeding after the procedure. There is also a risk of infection after the procedure. These complications are rare and can be easily treated. You should contact you doctor is you have any of the following: Heavy bleeding (more than your normal period) Bleeding with clots Severe abdominal pain Fever (more than 100.4F) Foul smelling vaginal discharge RESULTS We will have the results of your biopsy in 1-2 weeks. If you do not hear the results of your biopsy after 2 weeks, please contact the office for the results. If you have any additional questions or concerns please do not hesitate to contact the office. documented in this encounter [facility] 12-08-2023 History of Presen t illness Narrative Flake Drier offered: Patient declines. Silvina is a 48 year old who presents today for an endometrial biopsy for heavy menses. test: negative UNIVERSAL PROTOCOL / SAFETY CHECKLIST Procedure to be Performed: EMB Sign In: A Moment of CARE was completed. Personnel directly involved with the procedure wore the appropriate PPE (Personal Protective Equipment). Patient/Surrogate Stated/Verified: PATIENT VERIFIED(optional for EMERGENT procedures): Patient name, Date of , Relevant allergies, and The intended procedure Time Out Communication: Intended patient and procedure match the source documents. Consent documented and matches the intended procedure. Sign Out: SIGN OUT (optional for EMERGENT procedures): No specimen collected. PROCEDURE: EXTERNAL GENITALIA: Normal in appearance without lesions VAGINA: Normal in appearance without lesions BIOPSY: Speculum placed into the vagina with excellent visualization of the cervix. Cervix cleaned with betadine. Anterior lip of cervix grasped with single toothed tenaculum. Unable to pass Pipelle or dilator through os. Procedure terminated after multiple attempts Procedure Summary: Patient tolerated procedure well. ASSESSMENT: heavy menses PLAN: Endometrium normal on US. Low risk for abnormality. Adenomyosis would make an ablation less effective. IUD could not be easily placed because of cervical stenosis. Willing to try lysteda over POPs. Paula Juarez MD documented in this encounter [facility] 12-04-2023 Telephone encounter Note Appointment scheduled. Paula Cantu RN [facility] 12-04-2023 Miscellaneous Notes Appointment scheduled. Paula Cantu RN Left message to call office. Please schedule patient for EMB. Charity Pike RN ----- Message from Paula Juarez MD sent at 12/01/2023 5:38 PM EDT ----- Called patient to discuss US. Normal lining. Small fibroid. Does have adenomyosis. Needs scheduled for EMB please. No Mondays or Tuesdays documented in this encounter [facility] 12-04-2023 Telephone encounter Note Left message to call office. Please schedule patient for EMB. Charity Pike RN [facility] 12-04-2023 Telephone encounter Note ----- Message from Paula Juarez MD sent at 12/01/2023 5:38 PM EDT ----- Called patient to discuss US. Normal lining. Small fibroid. Does have adenomyosis. Needs scheduled for EMB please. No Mondays or Tuesdays [facility] 11-30-2023 Note Indication Evaluation of abnormal uterine bleeding: menorrhagia with regular cycle Impression The uterus is anteverted and measures 104 mm x 52 mm x 75 mm. The myometrium is heterogeneous but no obvious fibroids are observed. This finding is suggestive of adenomyosis. The endometrial thickness is 7 mm. There is a left lateral wall intramural fibroid that measures 13 mm x 11 mm x 12 mm. The right ovary measures 25 mm x 23 mm x 15 mm. The left ovary measures 23 mm x 16 mm x 12 mm. There is no free fluid visualized. Recommendations Fibroid uterus. Clinical correlation is recommended. Ultrasound findings suggestive for adenomyosis. Clinical correlation is recommended. Menstrual History LMP on 11/23/2023 Method Transabdominal, transvaginal, 3D ultrasound examination, Color Doppler examination. View: Adequate visualization Uterus Uterus: Visualized Uterus position: anteverted Description of uterine malformations: none Myometrium: heterogeneous Endometrium: normal Cervix details: cystic lesions identified suggesting superficial Nabothian cysts Uterus length 104 mm Uterus width 75 mm Uterus height 52 mm Uterus Vol 210.5 cm Endometrial thickness, total 7.0 mm Fibroids: Fibroids identified Uterine fibroid D1 13 mm Uterine fibroid D2 11 mm Uterine fibroid D3 12 mm Uterine fibroid mean 12.1 mm Uterine fibroid vol 0.926 cm Uterine fibroids findings: Left lateral wall. intramural Polyps: No polyps identified Right Ovary Rt ovary: Visualized Rt ovary morphology: premenopausal normal follicular Rt ovary D1 25 mm Rt ovary D2 23 mm Rt ovary D3 15 mm Rt ovary Vol 4.3 cm Rt ovarian cyst(s): No cysts identified Left Ovary Lt ovary: Visualized Lt ovary morphology: premenopausal normal follicular Lt ovary D1 23 mm Lt ovary D2 16 mm Lt ovary D3 12 mm Lt ovary Vol 2.4 cm Lt ovarian cyst(s): No cysts identified Cul de Sac Visualized. no free fluid visualized Performed By: Glendy Marquez RDMS Read By: Shira Orozco M.D. [facility] 11-30-2023 History of Presen t illness Narrative The patient presents for requested ultrasound. Full report available in the Imaging tab in Epic. Shira Orozco MD documented in this encounter [facility] 11-14-2023 History of Presen t illness Narrative Silvina is a 48 year old No obstetric history on file. who presents for an annual gynecologic exam with complaints, heavy bleeding. Heavy bleeding with periods. Lasting 4-6 days. Having to wear diapers at night. Bleeding through clothing and pads. Us previously with a fibroids. Has not had a EMB or treatment. Ready for treatment. Discussed EMB after f/u ultrasound. POPs, IUD and ablation as options to treat heavy bleeding if normal pathology. Menses: cycles every month days and 5-6 days of flow. Contraception: vasectomy HPV vaccine: N/A Last Pap: 2021 normal HPV: negative History of abnormal pap: No Last mammogram: 2022normal Sexually active: Yes History of fibroids: Yes, OB History No obstetric history on file. Stave Bolt Equalizer History LMP: 10/30/2023, Having periods Age at Menarche: Age at First : Age at Menopause: Stave Bolt Equalizer History Comments: Sexual Activity: Yes; Male Contraception: No contraception data on record PAST MEDICAL HISTORY Diagnosis Date Rheumatoid arthritis (HCC) currently getting screened for Rheumatoid PAST SURGICAL HISTORY Procedure Laterality Date REPAIR OF NASAL SEPTUM REVISE MEDIAN N/CARPAL TUNNEL SURG FAMILY HISTORY Problem Relation Age of Onset No Known Problems Mother No Known Problems Father No Known Problems Sister Colon Cancer Maternal Grandmother Cancer Maternal Grandfather Leukemia Paternal Grandmother Colon Cancer Paternal Grandfather SOCIAL HISTORY Social History Tobacco Use Smoking status: Every Day Smokeless tobacco: Never Tobacco comments: .25pkg day Vaping Use Vaping Use: Never used Substance Use Topics Alcohol use: Yes Comment: rarely Drug use: No REVIEW OF SYSTEMS Abdomen: No abdominal pain, nausea, vomiting, diarrhea, or constipation. No bloating, early satiety, indigestion, or increased flatulence. Bladder: No dysuria, gross hematuria, urinary frequency, urinary urgency, or incontinence. Breast: No breast lumps, nipple d/c, overlying skin changes, redness or skin retraction. Allergies and current medication updated:Yes EXAM: BP 138/82 Ht 5' 6 (1.68m) Wt 181 lb (82.1kg) LMP 10/30/2023 BMI 29.23 kg/(m^2). GENERAL: pleasant, female in no apparent distress HEENT: Normocephalic, atraumatic, mucus membranes moist, and no lesions NECK: Supple, full range of motion, no adenopathy, and thyroid normal DERMATOLOGY: Normal, without lesions, non-icteric, and non-hirsute BREAST: soft, non-tender, symmetric, no dominant mass, normal nipple-areolar complex, no lymphadenopathy, and no nipple discharge CHEST: Normal inspiratory effort ABDOMEN: soft, non-tender, and no masses PELVIC: external genitalia normal, normal Bartholin's glands, urethra, Succasunna's glands, no vulvar lesions, no cervical lesions, good vaginal support, physiologic discharge present, normal appearing perineal body and perianal region BIMANUAL: uterus normal size, shape and consistency, no adnexal masses, and non-tender RECTOVAGINAL: deferred. NEURO: alert and oriented x3,exam grossly non-focal EXTREMITIES: normal ASSESSMENT/PLAN: 1) Health maintenance: Pap/HPV up to date. Mammogram up to date . 2) Contraception: vasectomy. Contraceptive options reviewed and information provided. 3) STD screening: Declined STD check. 4) Follow up one year or sooner as needed 5) Menorrhagia - TVUS and then EMB Paula Juarez MD documented in this encounter [facility] 04-03-2023 History and physi ethan note Note Date/Time April 03, 2023 7:16am [facility] Medical Records Department [address] [place] [address] History & Physical Exam 04/03/23 0715 MR#: [id number] Acct: [id number] Name: SILVINA REYNOLDS Rep #:[id number] : 1975 47 From: Mayte Mcclellan MD PCP: Dr. Angel Prater MD Status: [facility] Location: [place] [address] HPI - General General Date of Service: 04/03/23 HPI Narrative SILVINA REYNOLDS, is a 47 F who presents for screening colonoscopy. Patient never had previous colonoscopy. Patient paternal grandfather had colon cancer at age 56. Patient denies any chronic abdominal pain/nausea/vomiting/reflux. Patient's bowel movements every 1-2 days denies any blood. PFSH Medical History Arthritis Family hx of colon cancer History of deviated nasal septum Rheumatoid arthritis Smoker Home Medications cholecalciferol (vitamin D3) 50 mcg (2,000 unit) capsule 50 mcg PO DAILY 02/13/23 [History Last Taken Unknown] magnesium citrate,mag oxide 250 mg capsule 250 mg PO DAILY 02/13/23 [History Last Taken Unknown] mecobalamin (vitamin B12) 1,000 mcg chewable tablet 1,000 mcg PO DAILY 02/13/23 [History Last Taken Unknown] turmeric root extract 500 mg capsule 500 mg PO DAILY 02/13/23 [History Last Taken Unknown] Allergy/AdvReac Type Severity Reaction Status Date / Time No Known Allergies Allergy Verified 03/27/23 09:32 Family History (Updated 02/13/23 @ 15:34 by Anny Meeks) Grandfather Colon cancer, Onset Age: 56 Colon cancer started at young age per patient Heart disease Grandfather Throat cancer Lung cancer Bone cancer Grandmother Leukemia Skin cancer Surgical History (Updated 03/27/23 @ 09:38 by Kusum Rashid) History of carpal tunnel surgery of right wrist Social History (Updated 02/13/23 @ 15:35 by Anny Meeks) household members: spouse and children current occupational status: employed Smoking Status: Current every day smoker tobacco type: cigarettes Past Medical/Surgical History Planned Operation Planned Operative Procedure/s: COLONOSCOPY-OA S.O.S: No Previous Hospitalizations/Surgeries HX Hospitalizations: No HX of Surgeries: DEVIATED SEPTUM Any Problems With Anesthesia: No You/Your Family Experience Fever (Hyperthermia) With Anes: No Cholinesterase deficiency: No Cardiovascular Hx Chest Pain within Last 2 months: No Hx of Irregular Heartbeat and/or Afib: No Hx Heart Attack: No Hx Congestive Heart Failure: No Hx Rheumatic Fever: No Hx Hypertension: No Hx Internal Defibrillator: No Hx Pacemaker: No Hx Cardiac Catheterization: No Hx Cardiac Surgery/Stents/Etc.: No Hx Stress Test: No Hx Pain in Legs when Walking/Leg Cramps: No Respiratory Chronic Cough: No HX of Shortness of Breath: No Hoarseness: No Hx Chronic Obstructive Pulmonary Disease (COPD): No Hx Asthma: No Hx Emphysema: No Hx Sleep Apnea: No Hx Respiratory Tract Infection/Cold (presently): No Do You Snore Loudly (louder than talking or can be heard): No Do You Often Feel Tired/ Fatigued/ Sleepy Dring Daytime?: No Has Anyone Observed You Stop Breathing During Sleep?: No Result (for STOP score): Negative Hx Smoking: Yes (1PPD FOR 20 YRS) Smoking Status: Current every day smoker Gastrointestinal Hx Gastroesophageal Reflux: No Hx Gastrointestinal Disorders: No Hx Gastrointestinal Bleed: No Hx Ulcer: No Hx Hiatal Hernia: No Difficulty Chewing/Swallowing: No Special diet followed at home: No Hx Unplanned Weight Loss of 20#: No HX Unplanned Weight Gain of 20#: No Neurological Hx Seizures: No HX Syncope/Blackout Spells/Unconsciousness: No Hx Transient Ischemic Attacks (TIA): No Hx Multiple Sclerosis: No Hx Parkinson's Disease: No Hx Head/Neck Injury: No Hx Headaches: No Hx Back Injury/Pain: No Recent Onset of Speech Difficulty: No Restless Legs: No Does patient have nerve stimulator: No Blood Disorder Hx Leukemia: No Bleeding Tendencies: No Hx Deep Vein Thrombosis: No Hx High Cholesterol: No Blood Transmitted Disease: No Hx Hepatitis: No Hx Cirrhosis: No Hx Anemia: No Hx Blood Disorders: No Reproduction : No Is Patient Lactating: No Hx Hysterectomy: No Hx Tubal Ligation: No Are You Post Menopause: No Genitourinary Hx Renal Disease: No Musculoskeletal Hx Arthritis: No Hx Rheumatoid Arthritis: No Hx Gout: No Recent Onset of an Orthopedic Problem: No Endocrine Hx Diabetes: No Thyroid Disease: No Hx Steroid Therapy: No Psycho/Social Hx Substance Use: No Hx Alcohol Use: Yes (SOCIAL) Hx Anxiety: No Hx Depression: No Mental Illness: No Hx Dementia: No Miscellaneous Hx Cancer: No Recent Exposure to Contagious Disease: No Hx of C-Diff: No Any Loose Teeth: No Allergies No Known Allergies Allergy (Verified 03/27/23 09:32) Discharge Is Pt Admitted From a Prison, or a Longterm: No After D/C, Where Do you Plan to Go: Return Home Physical Exam Const alert, oriented x3 and no apparent distress HEENT normocephalic and head/scalp atraumatic Resp normal respiratory effort Cardio regular rate GI soft to palpation and non-tender; Negative for non-distended Palpation: Negative for guarding Extremity no clubbing, cyanosis or edema Skin no rashes or lesions noted Neuro CN's II-XII intact bilaterally Psych mental status grossly normal Assessment & Plan Assessment/Plan (1) Encounter for screening for malignant neoplasm of colon: Surgery Risks - Colonoscopy I discussed with the patient the risks of the procedure: Yes Risks Include but are not Limited To: Risks include but are not limited to: Bleeding, perforation requiring further surgery, inability to complete colonoscopy requiring barium enema. 04/03/23722 <Electronically signed by Mayte Mcclellan MD> Cosigner Signature (if applicable): CC: Dr. Angel Prater MD; Dr. Mayte Mcclellan MD~ Signed [facility] Work Phone: [phone] 875-538210-30-2023 Procedure [facility] 04-03-2023 Procedure [facility]05-24-2022 NotePap Smear Specimen AdequacyMay 2021 11:15amCommentSatisfactory for evaluation. Endocervical and/or squamous metaplasticcells (endocervical component)are present.[facility] INTER[facility]ACED A#[id number] [facility] Work Phone: Comment on above:Satisfactory for evaluation. Endocervical and/or squamous metaplasticcells (endocervical component)are present.Evaluation noteNo assessment information availableWTrinity Health System [facility] Work Phone: Evaluation note* Diagnosis Onset Date Resolution Status Encounter for screening for malignant neoplasm of colo n acute [facility] Work Phone: Evaluation note* Diagnosis Encounter for gynecological examination (general) (routine) without abnormal findings- Primary Encounter for screening mammogram for breast cancer Menorrhagia with regular cycle Excessive or frequent menstruation [facility] [place] [facility] Diagnosis Menorrhagia with regular cycle- Primary Excessive or frequent menstruation Intramural uterine fibroid Adenomyosis of the uterus documented in this [facility] [place] [facility]* Diagnosis Menorrhagia with regular cycle- Primary Excessive or frequent menstruation [facility] Diagnosis Encounter for gynecological examination (general) (routine) with abnormal findings- Primary Screening for cervical cancer Screening for malignant neoplasm of the cervix Encounter for screening for human papillomavirus (HPV) Special screening examination for human papillomavirus (HPV) Encounter for screening mammogram for breast cancer Abnormal uterine bleeding Unspecified disorder of menstruation and other abnormal bleeding from female genital tract documented in this encounter [facility] for referral (narrative)* Diagnostic Procedure Only (Routine) - Open Specialty Diagnoses / Procedures Referred By Pj sorenson Referred To Contact [facility] Diagnoses Menorrhagia with regular cycle Procedures PELVIC US WHI US PELVIC NONOBSTETRIC REAL-TIME IMAGE COMPLETE Paula Juarez MD [address] [place] [address] [facility] [address] [place] [address] Referral ID Status Reason Start Date Expiration Date V isits Requested Visits Authorized [id number] Open Auto-Generate d Referral 11/14/2023 11/13/2024 1 1 * Diagnostic Procedure Only (Routine) - Pending Review Specialty Diagnoses / Procedures Referred By Pj sorenson Referred To Contact [facility] Diagnoses Encounter for screening mammogram for breast cancer Procedures ALISIA SCREENING W TERESA SCREENING DIGITAL BREAST TOMOSYNTHESIS BI SCREENING MAMMOGRAPHY BI 2-VIEW BREAST INC CAD Paula Juarez MD [address] [place] [address] [facility] [address] [place] [id number] Referral ID Status Reason Start Date Expiration Date Visits Requested Visits Authorized [id number] Pending Review Auto-Generat ed Referral 11/14/2023 12/13/2024 1 1 [facility] for referral (narrative)* Outpatient Procedure (Routine) - Pending Review Specialty Diagnoses / Procedures Referred By Pj sorenson Referred To Contact [facility] Diagnoses Menorrhagia with regular cycle Procedures ENDOMETRIAL BIOPSY ENDOMETRIAL BX W/WO ENDOCERVIX BX W/O DILAT SPX Paula Juarez MD [address] [place] [address] [facility] [address] [place] [address] Referral ID Status Reason Start Date Expiration Date Visits Requested Visits Authorized [id number] Pending Review Auto-Generat ed Referral 12/08/2023 12/07/2024 [address] [facility] N[facility]* Diagnostic Procedure Only (Routine) - Closed Specialty Diagnoses / Procedures Referred By Contalessandro sorenson Referred To Contact [facility] Diagnoses Menorrhagia with regular cycle Procedures PELVIC US WHI US PELVIC NONOBSTETRIC REAL-TIME IMAGE COMPLETE Paula Juarez MD [address] [place] [address] [facility] [address] [place] [address] Referral ID Status Reason Start Date Expiration Date V isits Requested Visits Authorized [id number] Closed Auto-Generate d Referral 11/16/2023 06/04/2024 [address] [facility] Chief Complaint and Reason for Visit Chief Complaint SCREENING Chief Complaint SCREENING Chief Complaint SCREENING ABNORMAL MAMMOGRAM FINDINGS Chief Complaint SCREENING ABNORMAL MAMMOGRAM FINDINGS LABWORK Chief Complaint LABWORK Amb Documentation Reason for Visit Encounter for screen ing for malignant neoplasm of colon Advance Directives No Advanced Directives Records Found Advance Directive Response Recorded Date/ Time Living Will Yes January 09, 2019 9:26am Power of Clinical Research Specialist Yes January 09 9:26am Advance Directive Response Recorded Date/ Time Name of Medical Power of Clinical Research Specialist FRANFAHAD MONTALVO [facility] March 27, 2023 9:38am Living Will Yes March 27 9:38am Power of Clinical Research Specialist Yes March 27, 2023 9:38am Family History No Family History Records Found Relationship Condition Age at Onset Recorded Date/T ousmane grandfather Malignant neoplasm of colon 56 Cardiac disease Unknown grandfather Malignant neoplasm of throat Unknown Malignant neoplasm of lung Unknown Malignant neoplasm of bone Unknown grandmother Leukemia Unknown Malignant neoplasm of skin Unknown Summary Purpose Additional Source Comments Goals (unrecognized section and content) Goals may be documented in a n alternate sectionGoals may be documented in an alternate sectionGoals may be documented in an alternate sectionGoals may be documented in an alternate section Care Teams (unrecognized sec tion and content) Team Status: Active Member Role Status Dates Dr. Angel Prater MD Family Provider Active Dr. Angel Prater MD Primary Care Provider Activ e Team Status: Inactive Member Role Status Dates Dr. Angel Prater MD Primary Care Provider Activ e Dr. Ally Steen DO Attending Provider, Referrin g Provider Active Team Status: Inactive Member Role Status Dates Dr. Angel Prater MD Primary Care Provider, Attending Provider, Referring Provider Active Team Status: Active Member Role Status Dates Dr. Angel Prater MD Primary Care Provider Activ e Anny Meeks Attending Provider Active Team Status: Active Member Role Status Dates Dr. Angel Prater MD Primary Care Provider Activ e Dr. Mayte Mcclellan MD Attending Provi javier, Referring Provider, Other Provider Active Team Status: Inactive Member Role Status Dates Dr. Angel Prater MD Primary Care Provider Activ e Dr. Mayte Mcclellan MD Attending Provider, Referring Provider Active [employer] Sales Representative Relationship Specialty Start Date End Date Jed Prater MD [address] [place] [id number] PCP - General Family Medicine 01/27/25 Source Comments (unrecognize d section and content) In the event this informatio n is protected by the Federal Confidentiality of Alcohol and Drug Abuse Patient Records regulations: The Federal rules restrict any use of the information to criminally investigate or prosecute any alcohol or drug abuse patient.[facility] Hospital[facility] the event this information is protected by the Federal Confidentiality of Alcohol and Drug Abuse Patient Records regulations: The Federal rules restrict any use of the information to criminally investigate or prosecute any alcohol or drug abuse patient.[facility] HospitalIn the event this information is protected by the Federal Confidentiality of Alcohol and Drug Abuse Patient Records regulations: The Federal rules restrict any use of the information to criminally investigate or prosecute any alcohol or drug abuse patient.[facility] HospitalIn the event this information is protected by the Federal Confidentiality of Alcohol and Drug Abuse Patient Records regulations: The Federal rules restrict any use of the information to criminally investigate or prosecute any alcohol or drug abuse patient.[facility] HospitalIn the event this information is protected by the Federal Confidentiality of Alcohol and Drug Abuse Patient Records regulations: The Federal rules restrict any use of the information to criminally investigate or prosecute any alcohol or drug abuse patient.[facility] Reason for Visit (unrecogniz ed section and content) Reason Comments Well Woman Reason Comments Follow Up Reason Comments Endometrial Biopsy Specialty Diagnoses / Procedures Referred By Pj t Referred To Contact [facility] Diagnoses Menorrhagia with regular cycle Procedures ENDOMETRIAL BIOPSY ENDOMETRIAL BX W/WO ENDOCERVIX BX W/O DILAT SPX aPula Juarez MD [address] [place] [address] [facility] [address] [place] [address] Referral ID Status Reason Start Date Expiration Date V isits Requested Visits Authorized [id number] Closed Auto-Generate d Referral 12/04/2023 06/04/2024 1 1 Reason Comments Well [facility] INFORMATION SOURCE (unrecogn ized section and content) DATE CREATED AUTHOR 01/28/2025 [facility] DATE CREATED AUTHOR AUTHOR'S ORGANIZ ATION 01/30/2025 [facility] FOR RECORDS PERTAINING TO PATIENTS WHO ARE OR HAVE BEEN ENROLLED IN A CHEMICAL DEPENDENCY/SUBSTANCEABUSE PROGRAM, SOME INFORMATION MAY BE OMITTED. This clinical summary was aggregated from multiple sources. Caution should be exercised in using it in the provision of clinical care. This summary normalizes information from multiple sources, and as a consequence, information in this document may materially change the coding, format and clinical context of patient data. In addition, data may be omitted in some cases. CLINICAL DECISIONS SHOULD BE BASED ON THE PRIMARY CLINICAL RECORDS. [employer] provides no warranty or guarantee of the accuracy or completeness of information in this document.
== END | disposition home or self-care (01) ==
LOC: OPBI 12:23
PROVIDERS: PCP Family Medicine; Referring Provider Nurse Practitioner Women's Health; Visit Provider Nurse Practitioner Women's Health
DX: Z12.31 Encounter for screening mammogram for malignant neoplasm of breast (principal)
CPT/HCPCS: 77063; 77067

== ENCOUNTER → 2025-01-30 | Outpatient (CLI) | payer BC, SELFPAY ==
[2025-01-30 11:01] LABS: AST(SGOT) 15 U/L (<=31); Alanine Aminotransfer ALT/SGPT 15 U/L (<=34); Albumin, Serum 4.5 g/dL (3.5-5.0); Alkaline Phosphatase 81 U/L (35-104); Anion Gap 13 (5-15); BUN 15 mg/dL (4-19); BUN/Creat Ratio 21.6 RATIO (10-20); Calcium,Total 9.6 mg/dL (7.6-11.0); Carbon Dioxide 21.8 mmol/L (21.0-32.0); Chloride 104 mmol/L (98-108); Globulin 3.1 g/dL (2.2-4.2); Glucose 87 mg/dL (70-99); Potassium 3.9 mmol/L (3.3-5.1)
[2025-01-30 11:08] LABS: Hematocrit 41.7 % (37-47); Hemoglobin 13.7 g/dL (12.0-15.0); Mean Corp Hgb Conc 32.9 g/dL (32-36); Mean Corpuscular Volume 88.2 fL (81-99); Mean Platelet Vol. 10.1 fl (6.2-12.0); Platelet Count 263 K/mm3 (150-450); RBC Distribution Width CV 13.5 % (11.6-14.6); RBC Distribution Width SD 43.5 fl (35.1-43.9); Red Blood Count 4.73 M/mm3 (4.2-5.4); White Blood Count 8.5 K/mm3 (4.4-11.0)
[2025-01-30 12:21] LABS: Ferritin 12 ng/mL (22-378); Vitamin B12 439 pg/mL (180-914); Vitamin D,25 Hydroxy 25.5 ng/mL (30-100)
[2025-01-30 12:50] LABS: CRP < 3.00 mg/L (0.0-3.0)
[2025-01-31 11:08] LABS: GGTP 15 IU/L (0-60)
== END | disposition home or self-care (01) ==
LOC: MFPLAB 09:14
PROVIDERS: PCP Family Medicine; Referring Provider Family Medicine; Visit Provider Family Medicine
DX: R79.89 Other specified abnormal findings of blood chemistry (principal); M06.9 Rheumatoid arthritis, unspecified
CPT/HCPCS: 36415; 80053; 82306; 82607; 82728; 82977; 85027; 85652; 86140; 86200; 86431

== ENCOUNTER → 2025-03-06 | Outpatient (CLI) | payer BC, SELFPAY ==
--- NOTE | 2025-03-06 18:54 | CT_ITS ---
PROCEDURE: LOW DOSE CT LUNG SCREENING 03/06/2025 REASON FOR EXAM: ELEVATED RF AND SMOKER > 30 PACK YEARS. TECHNIQUE: Procedure Code: [id number] Modality: CT Procedure: LOW DOSE CT LUNG SCREENING Coronal and Sagittal reconstruction series were provided. One or more dose reduction techniques were used (e.g., Automated exposure control, adjustment of the mA and/or kV according to patient size, use of iterative reconstruction technique). REFERENCE LINK: [employer] Lung-RADS RADIATION DOSE SUMMARY: CTDlvol: 3 mGy DLP: 111 mGycm COMPARISON: None FINDINGS: Pulmonary Nodules: None Hardware:None Lymph Nodes:Normal Heart and Vasculature:Normal. Coronary Artery Calcifications: Absent Lungs and Airways: Upper lobe predominant centrilobular emphysema is mild. Scarring of the lung apices. Pleura:No pleural effusion or pneumothorax. Upper Abdomen:Unremarkable Bones:Degenerative changes of the thoracic spine. CT/Low Dose CT Lung Screening IMPRESSION: No significant consolidation, mass or worrisome nodule. Coronary artery calcification (CAC) is absent Lung-RADS Category: 1 NEGATIVE. RECOMMEND 12-MONTH SCREENING LDCT. Reading Location: [id number]
== END | disposition home or self-care (01) ==
LOC: CT 18:53
PROVIDERS: PCP Family Medicine; Referring Provider Family Medicine; Visit Provider Family Medicine
DX: Z12.2 Encounter for screening for malignant neoplasm of respiratory organs (principal); Z72.0 Tobacco use
CPT/HCPCS: 71271